=== PATIENT | female | born 1975 | race Caucasian/White ===

== ENCOUNTER → 2017-08-03 09:21 | Outpatient (CLI) | payer BC, SELFPAY ==
--- NOTE | 2017-08-03 09:21 | DT_ITS ---
This patient was seen during an EMR downtime July 27, 2017 - August 03, 2017. This patient may have a combination of paper and electronic documentation or all paper documentation. All documentation is viewable within the e-chart portion of [facility] for each patient visit.
== END ==
PROVIDERS: Family Provider Internal Medicine; PCP Internal Medicine; Visit Provider Internal Medicine
DX: C73 Malignant neoplasm of thyroid gland (principal)

== ENCOUNTER → 2018-01-18 10:44 | Outpatient (CLI) | payer BC, SELFPAY ==
--- NOTE | 2018-01-18 10:46 | BI_ITS ---
MAMMOGRAPHY - BILATERAL SCREENING REASON FOR EXAM: Female, 42 years old. Routine annual screening examination. PERTINENT HISTORY: Aunt with breast cancer. Remote right excisional breast biopsy. TECHNIQUE: Digital bilateral breast nati (3D mammographic acquisition) in the CC and MLO projections. 2-D mediolateral oblique (MLO) and craniocaudad (CC) views of both breasts were obtained. CAD: Full Field Digital Mammography with Computer Added Detection was performed. COMPARISON: Comparison is made with prior study dated January 16, 2017 and December 19, 2015. FINDINGS: Breast Composition: The breasts are almost entirely fatty. There are no dominant masses or suspicious calcifications. No other significant abnormalities are identified. There has been no significant change since the prior study. BI/SCREENING MAMM (CAD), BILAT IMPRESSION: Stable bilateral screening mammogram. Yearly follow-up mammogram recommended. (A) ASSESSMENT CATEGORY: BIRADS Category 1: Negative. A letter regarding these results will be sent to the patient by the facility within 30 days. Approximately 10% of breast cancers are not detected by mammography. A normal mammogram should not delay biopsy of a clinically suspicious abnormality. [id number] Electronically Signed: Alec Jiménez MD at 13:47 EST Tel [phone], Service support ,
== END ==
PROVIDERS: Family Provider Internal Medicine; PCP Internal Medicine; Visit Provider Internal Medicine
DX: Z12.31 Encounter for screening mammogram for malignant neoplasm of breast (principal)
CPT/HCPCS: 77063; 77067

== ENCOUNTER 2018-02-24 16:30 | Outpatient (RCR) | payer BC, SELFPAY ==
--- NOTE | 2018-02-11 18:48 | HP.PTEVAL_ITS ---
Patient's Visit Information KAREL VAIL is a 42 year old F referred to Physical Therapy by Pam Louise DO with a diagnosis of cervical radiculopathy. Date of Evaluation: 02/11/18 Physical Therapist: Amari Baltazar, WILTONT, OCS, CSCS - Visit Plan Frequency: 2-3x /Week Duration: 4-6 Weeks Plan: 2-3x/week for 3-6 weeks. c/s ret ext adn progression of forces(monitor R rotation, ext rom, hand and neck symptoms). postural correction with strength, pec stretch and c/s manual traction as needed/ ext mobs. MH if needed and STM - Subjective Findings: B hand trouble Pain in Distal Fingers B, hard to product marketing consultant, sometimes fingers contract and feel burning in neck. Have been a problem for over a month. Has had it int he past. Intermittent pain in neck and feels numb and burny up there in the last 5-6 years. Injection years ago helped. Burning in last couple days. Holding things with hands can hurt. Sleeping too much. 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 Dishes and carrying laundry baskets and picking up kids are nto easy and hurt. Opening some packages can be hard and need to use scissors. No problem coughing or sneezing. RALPH intermittently for long time. - Pain neck pain Pain Intensity (Out of 10): 0 Pain Intensity Range: 8 Comment: burning pain hands Pain Intensity (Out of 10): 0 Pain Intensity Range: 0, 1, 7 Comment: using hands worse. - Objective c/s AROM L rotation 70 and R 55 and pain, c/s ext 30 and pain, R SB limited and pain R,. reflexes 2/3 biceps adn triceps. sensation UE WNL to gross light touch. Strength UE 4/5 without pain. Posture is very forward head and scapula, loss of cervical lordosis evident. Tender to touch R>L UT and vivian cervical mm. - c/s compression test. Full aROM B UE. repeated motion testing c/s. Protrusion: NE. retraction: Better motion, NE on nonexistent pain. ret/ext: better motion and rot and ext. - Goals Goal 1:: full c/s arom without pain Goal Time Frame: 4-6 Weeks Goal 2:: Patient feel hand and neck symptoms 90% improved adn 1/10 at worst. Goal Time Frame: 4-6 Weeks Goal 3:: match up person children and food at home without pain. Goal Time Frame: 4-6 Weeks Goal 4:: I approp HEP to manage symptoms. Goal Time Frame: 4-6 Weeks - Rehabilitation Potential Physical Therapy Diagnosis: likely cervical discal radiculopathy. Rehabilitation Potential: Fair - Anticipated Interventions Patient/Client Instruction: Educate patient on: Condition, Plan of Care For the Purpose of:: To decrease pain, To increase ROM Therapeutic Exercise to Include: Strength training, Flexibilty training, Passive ROM, Active ROM, Elizabeth Exercises For the Purpose of:: To decrease pain, To increase ROM, To increase tolerance to activity/condition/position, To improve ability of physical actions for home/community/work/leisure Manual Therapy Techniques to Include: Mobilization, Soft tissue mobilization For the Purpose of:: To increase ROM Thermo therapy (hot pack): Yes For the Purpose of:: To increase tolerance to activity/condition/position Thank you for the opportunity to evaluate your patient. For Medicare and Medicare HMO plans, please review the plan of care and approve it. It will need to be FAXED BACK to us at [phone] for Medicare purposes. For Medicare only, by signing this I certify the plan of care. Please let me know if there are questions or concerns regarding this plan of care. Physician Signature: Date:
--- NOTE | 2018-02-24 17:11 | HP.PTREVAL_ITS ---
Pam Louise, DO, It has been my pleasure to treat KAREL VAIL over the last 5 visits for cervical radiculopathy. Please see the progress note below for an update on the physical therapy plan of care! Subjective: RALPH over last weekend, stopped ex and seems better since. Never been any change to the hands. Only hurt when she uses them. Objective/Function: No change to hand symptoms with any of the therapy and not improving, conversely head and neck bothering her more. Recommend return to doctor for next medical option. Plan Plan: Pt to return to doctor for next medical option. Would be happy to keep seeing her if no other options but she is not coming along as expected. Pt to call after doctor visit for return or D/C Goals Goal 1:: full c/s arom without pain Goal Time Frame: 4-6 Weeks Goal Progress: Not Progressing Goal 2:: Patient feel hand and neck symptoms 90% improved adn 1/10 at worst. 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 Goal Time Frame: 4-6 Weeks Goal Progress: Not Progressing Goal 4:: I approp HEP to manage symptoms. Goal Time Frame: 4-6 Weeks Goal Progress: Not Progressing Anticipated Interventions Patient/Client Instruction: Educate patient on: Condition, Plan of Care For the Purpose of:: To decrease pain, To increase ROM Therapeutic Exercise to Include: Strength training, Flexibilty training, Passive ROM, Active ROM, Elizabeth Exercises For the Purpose of:: To decrease pain, To increase ROM, To increase tolerance to activity/condition/position, To improve ability of physical actions for home/community/work/leisure Manual Therapy Techniques to Include: Mobilization, Soft tissue mobilization For the Purpose of:: To increase ROM Thermo therapy (hot pack): Yes For the Purpose of:: To increase tolerance to activity/condition/position Please do not hesitate to contact me at [phone] by phone or if you have questions or concerns regarding this new plan of care! Sincerely, Amari Baltazar, DPT, OCS, CSCS
--- NOTE | 2018-05-25 18:29 | HP.PTDCSUM_ITS ---
HP - PT D/C Summary It has been my pleasure to treat KAREL VAIL under orders from Pam Louise DO, for the diagnosis of cervical radiculopathy for a total of 5 visit(s). Discharge Date: Please see the following information for a summary of their discharge status. - Subjective Subjective: RALPH over last weekend, stopped ex and seems better since. Never been any change to the hands. Only hurt when she uses them. - Pain neck pain Pain Intensity (Out of 10): 5 hands Pain Intensity (Out of 10): 5 - Overall Improvement % Improvement: 0 - Objective Objective/Function: No change to hand symptoms with any of the therapy and not improving, conversely head and neck bothering her more. Recommend return to doctor for next medical option. - Goals Goal 1:: full c/s arom without pain Goal Progress: Not Progressing Goal 2:: Patient feel hand and neck symptoms 90% improved adn 1/10 at worst. 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 Goal Progress: Not Progressing Goal 4:: I approp HEP to manage symptoms. Goal Progress: Not Progressing - Plan Plan: Pt to return to doctor for next medical option. Would be happy to keep seeing her if no other options but she is not coming along as expected. Pt to call after doctor visit for return or D/C - D/C Information If there are questions or concerns regarding this patient's physical therapy, please feel free to call me at [phone]. Thank you for the referral of this patient. Sincerely, Amari Baltazar, DPT, OCS, CSCS
== END 2018-02-24 19:00 | disposition home or self-care (01) ==
LOC: PT 16:30
PROVIDERS: Family Provider Internal Medicine; PCP Internal Medicine; Referring Provider Internal Medicine; Visit Provider Internal Medicine
DX: M54.12 Radiculopathy, cervical region (principal)
CPT/HCPCS: 97014; 97110; 97140; 97162; G0283

== ENCOUNTER → 2018-03-08 10:05 | Outpatient (CLI) | payer BC, SELFPAY ==
--- NOTE | 2018-03-08 10:49 | MRI_ITS ---
STUDY: MRI CERVICAL SPINE WITH AND WITHOUT CONTRAST REASON FOR EXAM: Female, 42 years old. Transverse myelitis with neck pain TECHNIQUE: Standardized fat and water weighted pulse sequences were obtained in the sagittal and axial following I.V. administration of 10 ml of Gadavist contrast material. COMPARISON: 06/23/2014 FINDINGS: Normal foramen magnum and brainstem-cervical cord junction. Normal craniovertebral junction. Normal anterior atlantoaxial articulation. Normal odontoid process. Normal cervical lordosis. Normal vertebral bodies and posterior osseous elements. C2-3: Normal endplates. Normal disc height, signal and morphology. Normal central canal and intervertebral neural foramina. C3-4: Normal endplates. Normal disc height, signal and morphology. Normal central canal and intervertebral neural foramina. C4-5: Disc osteophyte complex with moderate central canal and bilateral foraminal stenoses. C5-6: Disc osteophyte complex with mild central canal and moderate left foraminal stenoses. C6-7: Normal endplates. Normal disc height, signal and morphology. Normal central canal and intervertebral neural foramina. C7-T1: Normal endplates. Normal disc height, signal and morphology. Normal central canal and intervertebral neural foramina. Normal cervical cord. Previously described area of T2 hyperintensity involving the cord at the T4 level is unchanged. This is incompletely imaged on this cervical spine study. Normal visualized soft tissue structures. MRI/Spine Cervical W/WO Contrast IMPRESSION: No cervical cord signal abnormalities are seen. Previously described area of T2 hyperintensity involving the cord at the T4 level is unchanged. This is incompletely imaged on this cervical spine study. Multilevel degenerative disease as described. No evidence of nerve root impingement. Electronically Signed: Kenny Friend MD at 13:10 EST Tel , Service support ,
== END ==
PROVIDERS: Family Provider Internal Medicine; PCP Internal Medicine; Referring Provider Internal Medicine; Visit Provider Internal Medicine
DX: M54.12 Radiculopathy, cervical region (principal)
CPT/HCPCS: 72156; A9585

== ENCOUNTER → 2018-07-02 12:48 | Outpatient (CLI) | payer BC, SELFPAY ==
--- NOTE | 2018-07-02 12:51 | RAD_ITS ---
STUDY: X-RAY - LUMBAR SPINE REASON FOR EXAM: Female, 43 years old. Back pain. TECHNIQUE: 5 view(s) of the lumbar spine were obtained. COMPARISON: None FINDINGS: Normal lumbar lordosis. There is no substantial scoliosis. There is a normal alignment of the vertebrae. Normal vertebral bodies and endplates. Normal disc space heights. The patient is status post fusion of L5 and S1 with bilateral pedicle screws. The soft tissue structures are unremarkable. RAD/L/S Spine Min 4 Views IMPRESSION: 1. Status post fusion of L5 and S1 with pedicle screws. 2. No demonstrated acute changes. Electronically Signed: Danny Chapin MD at 13:03 EDT Tel , Service support ,
== END ==
PROVIDERS: Family Provider Internal Medicine; PCP Internal Medicine; Referring Provider Nurse Practitioner Family; Visit Provider Nurse Practitioner Family
DX: M54.5 Low back pain (principal)
CPT/HCPCS: 72110

== ENCOUNTER → 2018-08-02 14:49 | Outpatient (CLI) | payer BC, SELFPAY ==
--- NOTE | 2018-08-02 14:52 | ECHOCS_ITS ---
Reason For Study: EXERCISE INTOLERANCE Procedure This was a 2D Doppler, Color Flow transthoracic echocardiogram. Exam performed in department. Left Ventricle Normal LV size. The estimated ejection fraction is 50 %. Stage 1 diastolic dysfunction. No regional wall motion abnormalities noted. Right Ventricle Normal RV size. Normal systolic function. Atria Normal left atrium. Normal right atrium. Mitral Valve Normal mitral valve. Tricuspid Valve Normal tricuspid valve. Aortic Valve Normal aortic valve. Pulmonic Valve Normal pulmonic valve. Great Vessels Normal aortic root. The pulmonary artery is normal size. Normal inferior vena cava. Pericardium/Pleural No pericardial effusion. Medication 22 gauge I.V. with prn adaptor inserted into right arm. Diluted definity 2ml given slow IV push to enhance endocardial definition. MMode/2D Measurements & Calculations LVIDd: 3.6 cm IVSd: 0.94 cm Ao root diam: 3.0 cm LVIDs: 2.4 cm LVPWd: 0.94 cm RVDd: 3.3 cm FS: 31.6 % LAV(MOD-bp): 31.9 ml LVAd ap4: 26.2 cm2 SV(MOD-sp4): 44.4 ml LAV(MOD-bp) Indexed: 15.0 ml/m2 EDV(MOD-sp4): 73.2 ml LAV(MOD-sp2): 37.1 ml EDV(sp4-el): 75.1 ml LAV(MOD-sp4): 27.5 ml LVAs ap4: 14.3 cm2 ESV(MOD-sp4): 28.8 ml ESV(sp4-el): 27.4 ml EF(MOD-sp4): 60.6 % EF(sp4-el): 63.4 % SV(sp4-el): 47.6 ml LA A4 area: 13.1 cm2 LA dimension(2D): 3.6 cm RA A4 area: 11.8 cm2 Time Measurements MV dec time: 0.20 sec Doppler Measurements & Calculations MV E max ralph: 44.6 cm/sec Lat Peak E' Ralph: 12.4 cm/sec Med Peak E' Ralph: 8.6 cm/sec MV A max ralph: 76.5 cm/sec E/E' lat: 3.6 E/E' med: 5.2 MV E/A: 0.58 Ao V2 max: 135.2 cm/sec LV V1 max: 90.2 cm/sec PA V2 max: 68.2 cm/sec Ao max P.3 mmHg LV V1 max P.3 mmHg Interpretation Summary Normal LV size. The estimated ejection fraction is 50 %. Stage 1 diastolic dysfunction. Contrast injection was performed. Ordering Physician: Pam Louise Referring Physician: Pam Louise Performed By: Ana Laura Reyes RDCS
== END ==
PROVIDERS: Family Provider Internal Medicine; PCP Internal Medicine; Referring Provider Internal Medicine; Visit Provider Internal Medicine
DX: E04.1 Nontoxic single thyroid nodule (principal); K76.0 Fatty (change of) liver, not elsewhere classified; R68.89 Other general symptoms and signs
CPT/HCPCS: 93306; Q9957; A4216; C8929

== ENCOUNTER → 2018-08-28 10:32 | Outpatient (CLI) | payer BC, SELFPAY ==
[2018-08-28 11:23] LABS: hCG Titer Quant., Serum 20432 mIU/mL (1-3)
== END ==
PROVIDERS: Family Provider Internal Medicine; PCP Internal Medicine; Referring Provider Internal Medicine; Visit Provider Internal Medicine
DX: Z32.01 Encounter for pregnancy test, result positive (principal)
CPT/HCPCS: 36415; 84702

== ENCOUNTER → 2018-08-30 11:38 | Outpatient (CLI) | payer BC, SELFPAY ==
[2018-08-30 13:15] LABS: hCG Titer Quant., Serum 25313 mIU/mL (1-3)
== END ==
PROVIDERS: Family Provider Internal Medicine; PCP Internal Medicine; Referring Provider Internal Medicine; Visit Provider Internal Medicine
DX: Z32.01 Encounter for pregnancy test, result positive (principal)
CPT/HCPCS: 36415; 84702

== ENCOUNTER → 2018-08-31 07:58 | Outpatient (CLI) | payer BC, SELFPAY ==
--- NOTE | 2018-08-31 07:59 | US_ITS ---
STUDY: ABDOMINAL ULTRASOUND - RIGHT UPPER QUADRANT REASON FOR VISIT: Female, 43 years old. Fatty liver. TECHNIQUE: Ultrasound evaluation of the right upper quadrant was performed with real-time and static kent-scale imaging. TECHNICAL QUALITY: Adequate. COMPARISON: None. FINDINGS: Liver: The liver measures 15.3 cm. There is increased echogenicity consistent with fatty infiltration. The bile ducts are within normal limits. There is hepatic color flow. The direction of portal flow is hepatopetal. There is no demonstrated mass lesion. Gallbladder: The patient is status post cholecystectomy. Common Bile Duct (C.B.D.): The common bile duct measures 2.5 mm. Pancreas: Normal size of the head, body and tail of the pancreas. There is normal echogenicity of the pancreas. There is no demonstrated pancreatic mass or cyst. Right Kidney: Normal size of the right kidney. The right kidney measures 11.9 cm in length. Normal renal cortex. There is no demonstrated renal mass or cyst. There is no right hydronephrosis. There is a punctate calcification within the right renal cortex. US/Liver IMPRESSION: Fatty infiltration of the liver. Electronically Signed: Stephanie Murry MD at 16:56 EDT Tel , Service support ,
--- NOTE | 2018-08-31 07:59 | US_ITS ---
STUDY: THYROID ULTRASOUND REASON FOR EXAM: Female, 43 years old. Thyroid nodule TECHNIQUE: Ultrasound evaluation of the thyroid was performed with real-time and static kent-scale imaging. COMPARISON: 08/03/2017 FINDINGS: RIGHT LOBE: Surgically absent LEFT LOBE: The left lobe of the thyroid gland measures 5 x 2.1 x 2.1 cm. There is a homogeneous echotexture. There is 3 solid nodules within the left thyroid lobe, largest is in the midpole region measuring 1.8 x 1.4 x 1.1 cm. ISTHMUS: The isthmus measures 3 mm. Stable small isthmus thyroid nodule measuring 4 x 3 x 2 mm The regional lymph nodes are normal. US/Thyroid IMPRESSION: Status post right thyroidectomy. Stable solid nodules in the left thyroid lobe with a dominant nodule as above. Electronically Signed: Rickey Khan DO at 8:25 EDT Tel , Service support ,
== END ==
PROVIDERS: Family Provider Internal Medicine; PCP Internal Medicine; Referring Provider Internal Medicine; Visit Provider Internal Medicine
DX: E04.1 Nontoxic single thyroid nodule (principal); K76.0 Fatty (change of) liver, not elsewhere classified; R68.89 Other general symptoms and signs
CPT/HCPCS: 76536; 76705

== ENCOUNTER → 2018-09-01 13:55 | Outpatient (CLI) | payer BC, SELFPAY ==
[2018-09-01 15:50] LABS: hCG Titer Quant., Serum 30846 mIU/mL (1-3)
== END ==
PROVIDERS: Family Provider Internal Medicine; PCP Internal Medicine; Referring Provider Internal Medicine; Visit Provider Internal Medicine
DX: Z32.01 Encounter for pregnancy test, result positive (principal)
CPT/HCPCS: 36415; 84702

== ENCOUNTER → 2018-09-08 17:27 | Outpatient (CLI) | payer BC, SELFPAY ==
[2018-09-08 16:46] VITALS: BMI 37.4
[2018-09-08 18:01] LABS: Absolute Lymphocyte Count 4.04 X10^3/uL (0.83-4.51); Absolute Neutrophil Count 7.1 X10^3/uL (2.0-7.7); Basophil# 0.05 X10^3/uL; Basophil% 0.4 % (0-1); Eosinophil# 0.12 X10^3/uL; Hematocrit 37.5 % (37-47); Hemoglobin 12.6 g/dL (12.0-15.0); Lymphocyte # 4.04 X10^3/ul (4.0); Lymphocyte % 33.4 % (19-41); Mean Corp Hgb Conc 33.6 g/dL (32-36); Mean Corpuscular Volume 95.2 fL (81-99); Mean Platelet Vol. 10.5 fl (6.2-12.0); Monocyte# 0.75 X10^3/uL; Monocyte% 6.2 % (0-10); NRBC Flagged by Analyzer 0 % (0-5); Neutrophil # 7.11 X10^3/uL (2.7-7.7); Neutrophil % 58.8 % (47-70); Platelet Count 309 K/mm3 (150-450); RBC Distribution Width CV 13.6 % (11.6-14.6); RBC Distribution Width SD 47.9 fl (35.1-43.9); Red Blood Count 3.94 M/mm3 (4.2-5.4); White Blood Count 12.1 K/mm3 (4.4-11.0)
[2018-09-08 18:15] LABS: Hemoglobin A1c 6.6 % (4.2-6.3)
[2018-09-08 18:25] LABS: Protein, Urine (Random) 15.6 mg/dL (<11.9); Protein:Creat Ratio 69 mg/g CRE (0-200)
[2018-09-08 18:35] LABS: ALB/GLOB Ratio 0.8 RATIO (0.9-2.4); AST(SGOT) 39 U/L (15-37); Alanine Aminotransfer ALT/SGPT 52 U/L (13-56); Albumin, Serum 3.2 g/dL (3.2-5.0); Alkaline Phosphatase 70 U/L (45-117); Anion Gap 8 (5-15); BUN 9 mg/dL (7-18); BUN/Creat Ratio 13.7 RATIO (10-20); Calcium,Total 9.1 mg/dL (8.5-10.1); Chloride 105 mmol/L (98-107); Creatinine, Serum 0.66 mg/dL (0.55-1.02); EST Glomerular Filtration Rate 104 mL/min (>60); Est Glom Filt Rate - Afr Amer 125 mL/min (>60); Globulin 4.1 g/dL (2.2-4.2); Glucose 97 mg/dL (74-106); Potassium 3.8 mmol/L (3.5-5.1); Protein, Total 7.3 g/dL (6.4-8.2); Sodium Level 135 mmol/L (136-145); T4 Free Direct 1.29 ng/dL (0.76-1.46); Thyroid Stim Hormone (TSH) 0.47 uIU/mL (0.358-3.74)
[2018-09-08 20:29] LABS: Chlamydia Trachomatis by PCR Negative (Negative); Neisserai gonorrhoeae by PCR Negative (Negative); Probe Check PASS; Sample Adequacy Control PASS; Specimen Processing Control PASS
== END ==
PROVIDERS: Family Provider Internal Medicine; PCP Internal Medicine; Referring Provider Obstetrics & Gynecology; Visit Provider Obstetrics & Gynecology
DX: O09.529 Supervision of elderly multigravida, unspecified trimester (principal); Z3A.00 Weeks of gestation of pregnancy not specified
CPT/HCPCS: 36415; 80053; 82570; 83036; 84156; 84439; 84443; 85025; 86850; 86900; 87086; 87088; 87491; 87591

== ENCOUNTER → 2018-09-21 16:07 | Outpatient (CLI) | payer BC, SELFPAY ==
[2018-09-08 16:46] VITALS: BMI 37.4
[2018-09-22 09:41] LABS: HIV - WCH Non-Reactive (Nonreactive); Hepatitis B Surface Antigen Non-Reactive (Nonreactive); Rubella IgG 46.5 IU/mL
[2018-09-23 13:36] LABS: Rapid Plasmin Reagin (RPR) NONREACTIVE (NONREACTIVE)
[2018-09-23 16:07] LABS: Hemoglobin Fraction A 97.8 % (96.4-98.8); Hemoglobin Fraction A2 2.2 % (1.8-3.2); Hemoglobin Fraction C 0 % (0.0); Hemoglobin Fraction F 0 % (0.0-2.0); Hemoglobin Fraction S 0 % (0.0); Hemoglobin Solubility,Panel Negative (Negative)
== END ==
PROVIDERS: Family Provider Internal Medicine; PCP Internal Medicine
DX: O24.119 Pre-existing type 2 diabetes mellitus, in pregnancy, unspecified trimester (principal); Z3A.00 Weeks of gestation of pregnancy not specified
CPT/HCPCS: 36415; 83021; 85660; 86592; 86703; 86762; 87340

== ENCOUNTER → 2018-10-11 15:13 | Outpatient (CLI) | payer BC, SELFPAY ==
[2018-09-08 16:46] VITALS: BMI 37.4
[2018-10-11 15:49] LABS: Hematocrit 36.2 % (37-47); Hemoglobin 11.8 g/dL (12.0-15.0); Mean Corp Hgb Conc 32.6 g/dL (32-36); Mean Corpuscular Hgb 31.5 pg (27.0-32.0); Mean Corpuscular Volume 96.5 fL (81-99); Mean Platelet Vol. 10.4 fl (6.2-12.0); Platelet Count 260 K/mm3 (150-450); RBC Distribution Width CV 12.8 % (11.6-14.6); RBC Distribution Width SD 45.8 fl (35.1-43.9); Red Blood Count 3.75 M/mm3 (4.2-5.4); White Blood Count 10.6 K/mm3 (4.4-11.0)
[2018-10-11 16:26] LABS: ALB/GLOB Ratio 0.7 RATIO (0.9-2.4); AST(SGOT) 16 U/L (15-37); Alanine Aminotransfer ALT/SGPT 18 U/L (13-56); Albumin, Serum 2.7 g/dL (3.2-5.0); Alkaline Phosphatase 63 U/L (45-117); Anion Gap 8 (5-15); BUN 12 mg/dL (7-18); BUN/Creat Ratio 20.1 RATIO (10-20); Calcium,Total 9.1 mg/dL (8.5-10.1); Chloride 107 mmol/L (98-107); EST Glomerular Filtration Rate 116 mL/min (>60); Est Glom Filt Rate - Afr Amer 140 mL/min (>60); Globulin 4.1 g/dL (2.2-4.2); Glucose 123 mg/dL (74-106); Potassium 3.7 mmol/L (3.5-5.1); Protein, Total 6.8 g/dL (6.4-8.2); Sodium Level 139 mmol/L (136-145); Uric Acid 2.8 mg/dL (2.6-6.0)
[2018-10-11 16:27] LABS: Lactic Acid 1.5 mmol/L (0.4-2.0)
[2018-10-11 17:45] LABS: Protein, Urine (Random) 15.9 mg/dL (<11.9); Protein:Creat Ratio 61 mg/g CRE (0-200)
== END ==
PROVIDERS: Family Provider Internal Medicine; PCP Internal Medicine
DX: O09.899 Supervision of other high risk pregnancies, unspecified trimester (principal); O09.521 Supervision of elderly multigravida, first trimester; Z3A.00 Weeks of gestation of pregnancy not specified
CPT/HCPCS: 36415; 80053; 82570; 83605; 84156; 84550; 85027

== ENCOUNTER → 2018-11-01 15:33 | Outpatient (CLI) | payer BC, SELFPAY ==
[2018-09-08 16:46] VITALS: BMI 37.4
[2018-11-01 17:16] LABS: Hemoglobin A1c 5.6 % (4.2-6.3)
[2018-11-01 17:18] LABS: T4 Free Direct 1.25 ng/dL (0.76-1.46)
== END ==
PROVIDERS: Family Provider Internal Medicine; PCP Internal Medicine; Referring Provider Medical Genetics Clinical Genetics (M.D.); Visit Provider Medical Genetics Clinical Genetics (M.D.)
DX: O24.911 Unspecified diabetes mellitus in pregnancy, first trimester (principal); O99.280 Endocrine, nutritional and metabolic diseases complicating pregnancy, unspecified trimester; E03.9 Hypothyroidism, unspecified; Z3A.00 Weeks of gestation of pregnancy not specified
CPT/HCPCS: 36415; 83036; 84439; 84443

== ENCOUNTER 2018-11-10 13:00 | Outpatient (RCR) | payer BC, SELFPAY ==
--- NOTE | 2018-08-23 10:27 | HP.PTEVAL ---
Patient's Visit Information KAREL VAIL is a 43 year old F referred to Physical Therapy by ROBY Dominguez with a diagnosis of LUMBAR SPONDYLOSIS, DDD AND POST-LAMINECTOMY SYNDROME.. Date of Evaluation: 08/23/18 Physical Therapist: Dorothy Garcia, PT, Cert MDT - Visit Plan Frequency: 2-3x /Week Duration: 4-6 Weeks Plan: * DIASTIS RECTI* *H/O THORACIC TRANSVERSE MYELITIS*. DIASTIS RECTI SPECIFIC EXERCISES. AQUATIC THERAPY FOR POSTURE CORRECTION/STRENGTHENING, INSTRUCTION IN APPROPRIATE BODY MECHANICS AND ACTIVITY MODIFICATIONS. DLS STARTING WITH A NEUTRAL SPINE PROGRESSING ROM TOLERATED. DARREN LE ROM, STRETCHING AND STRENGTHENING. HEP INSTRUCTION. 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 Disability: NO. Present symptoms: LOW BACK PAIN. DARREN LE MUSCLE SPASMS, HIP PAIN, THIGH, LEG AND FOOT PAIN, NUMBNESS AND TINGLING. Present since: 2001. Pain Scale: WORST 5/10, LEAST 1/10. Currently: 1-10. Commenced as a result of: NO APPARENT REASON. Symptoms at onset: LOW BACK AND LEGS. Worse: LIFTING, WALKING, SITTING, STANDING, PROLONGED ACTIVITY, HOMEMAKING, AND STAYING IN ONE POSITION TO LONG. Better: FREQUENT CHANGE OF POSITION, ICE PACK. Disturbed sleep: YES. Previous history/Previous treatment: 2003 - LUMBAR FUSION. TOMEKA'S - DR. MONTERO - FIRST SHOT AND WAS RECEIVED AUGUST 06 2018 - HELPED A LOT. CHIROPRACTIC TREATMENTS ON AND OFF NEEDED FOR ABOUT 20 YEARS (INCLUDING BEFORE SURGERY). 1-2 EPISODES OF CARE WITH PT (ONE BEFORE AND ONE AFTER). Coughing/sneezing/straining: NEGATIVE. Gait: DISTANCE AND TIME LIMITED. DARREN HIP PAIN AND DYSFUNCTION. SOME BALANCE ISSUES FROM DAMAGE FROM TRANSVERSE MYELITIS IN THORACIC SPINE. LEGS GET NUMB WITH PROLONGED WALKING. Difficulty initiating urinatin: NO. Accidents: NO. Unexplained weight loss: NO. Imaging: RECENT LUMBAR X-RAY - IMPRESSION: 1. Status post fusion of L5 and S1 with pedicle screws. 2. No demonstrated acute changes. PMH: TRANSVERSE MYELITIS (DIAGNOSED 2013) - RESIDUAL BALANCE ISSUES FROM DAMAGE. NIDDM, FIBROMYALGIA, ARTHRITIS, NECK PROBLEMS - NO NECK SURGERY. GETTING NECK INJECTIONS NOW. RECENET EPISODE OF CARE WITH PT FOR NECK WAS TOO PAINFUL PER PATIENT REPORT. RIGHT CTR, PARTIAL THYROID REMOVAL - TRACE CARCINOMA, DARREN FOOT SURGERIES, GALLBLADDER REMOVAL. *DIASTASIS RECTI. OTHER: PATIENT REPORTS SHE FEELS LIKE HER PAIN IS UNDER CONTROL SINCE RECEIVING THE INJECTION AND NOW SHE WANTS TO TRY TO GET HER STAMINA BACK. - Objective Sitting/Standing Posture: POOR. Lordosis: NORMAL. Lateral shift: NO. Relevant shift: N/A. Active Correction of posture: NE. Other Observations: INDEP GAIT AND TRANSFERS WITHOUT AD. Motor deficit: DARREN LE'S 5/5 WITH MMT'ING EXCEPT RIGHT HIP 4/5 AND LEFT 4-/5. Sensory deficit: DARREN LE LIGHT TOUCH SENSATION INTACT AND SYMMETRICAL. ROM deficit: DARREN LE'S WFL. Reflexes: NT. Dural Signs: NEGATIVE DARREN LE'S. Lumbar mvmt loss: flex - MIN - PULLING AND SORENESS IN LOW BACK. ext - MOD - LOW BACK SORENESS. R SG - MOD - NE. L SG - MOD - NE. Core strength: POOR. Palpation: NO ACUTE THORACIC, LUMBAR OR BUTTOCK PAIN WITH LIGHT PALPATION. - Goals Goal 1:: DECREASE C/O BACK AND DARREN LE SX'S TO EASE ADL'S. Goal Time Frame: 4-6 Weeks Goal 2:: IMPROVE LIFTING, WALKING, SITTING, STANDING, SLEEP, SOCIAL LIFE, TRAVEL AND HOMEMAKING FUNCTION/STAMINA Goal Time Frame: 4-6 Weeks Goal 3:: INSTRUCT IN PROPHYLAXIS Goal Time Frame: 4-6 Weeks - Rehabilitation Potential Rehabilitation Potential: Good - Anticipated Interventions Patient/Client Instruction: Educate patient on: Condition, Plan of Care, Risk Factors, Benefits of Fitness Program For the Purpose of:: To improve self management Therapeutic Exercise to Include: Strength training, Body mechanics, Postural training, Flexibilty training, Gait and locomotor training, In an aquatic setting, Dynamic Lumbar Stabilization For the Purpose of:: To increase ROM, To improve muscle performance and motor function, To increase tolerance to activity/condition/position, To improve ability of physical actions for home/community/work/leisure, To improve gait and locomotor functions Thank you for the opportunity to evaluate your patient. For Medicare and Medicare HMO plans, please review the plan of care and approve it. It will need to be FAXED BACK to us at [phone] for Medicare purposes. For Medicare only, by signing this I certify the plan of care. Please let me know if there are questions or concerns regarding this plan of care. Physician Signature: Date:
--- NOTE | 2018-10-06 09:42 | HP.PTREVAL ---
Nicolette Romero, LEXII-C, It has been my pleasure to treat KAREL VAIL over the last 13 visits for LUMBAR SPONDYLOSIS, DDD AND POST-LAMINECTOMY SYNDROME.. Please see the progress note below for an update on the physical therapy plan of care! Subjective: PATIENT REPORTS POOL THERAPY HAS BEEN GOING ASWOME AND FEELS LIKE IT HAS BEEN A GOOD CHOICE FOR HER. INTERMITTENT ACHING IN LOW BACK NOW. IT HAS BEEN REALLY GOOD. STILL HAVING SOME INTERMITTEN PAINS IN HER FEET BUT NOT SURE IF IT IS RELATED TO BACK. Objective/Function: PATIENT IS MAKING GREAT PROGRESS TOWARD ALL PT GOALS. SHE STILL HAS DECRASED LIGHT TOUCH SENSATION OF THE LLE COMPARED TO THE RIGHT AND LLE WEAKNESS COMPARED TO THE RIGHT BUT NO PAIN WITH LUMBAR ROM TESTING TODAY - SEE BELOW. SHE IS BECOMING INDEP WITH A POOL PROGRAM AND READY TO DECREASE FORMAL PT SHE TRANSITIONS TO FULL INDEP POOL PROGRAM. SHE HAS MILD FORWARD HEAD AND ROUNDED SHOULDERS AND WOULD BENEFIT FROM MORE EMPHASIS ON POSTURE WITH HER PROGRAM. Lumbar mvmt loss: flex - NIL. ext - MOD. R SG - MOD - NE. L SG - MOD - NE. Core strength: POOR. Palpation: NO ACUTE THORACIC, LUMBAR OR BUTTOCK PAIN WITH LIGHT PALPATION. PATIENT REPORTS SORENESS WHERE HER SURGERY WAS LIKE USUAL. Plan Plan: CONTINUE AQUATIC THERAPY DECREASING TO 1X/WK X 4 WEEKS TO HELP PATIENT SUCCESSFULLY TRANSITION TO INDEP POOL PROGRAM AT FACILITY OF HER CHOICE AND FOR FURTHER PROGRESSION ABLE. INCORPORATE UPPER BODY POSTURE CORRECTION AND SCAPULAR STRENGTHEING FOR POSTURE TOLERATED. PATIENT IS AGREEABLE TO THIS POC Goals Goal 1:: DECREASE C/O BACK AND DARREN LE SX'S TO EASE ADL'S. Goal Time Frame: 4-6 Weeks Goal Progress: Progressing Goal 2:: IMPROVE LIFTING, WALKING, SITTING, STANDING, SLEEP, SOCIAL LIFE, TRAVEL AND HOMEMAKING FUNCTION/STAMINA Goal Time Frame: 4-6 Weeks Goal Progress: Progressing Goal 3:: INSTRUCT IN PROPHYLAXIS Goal Time Frame: 4-6 Weeks Goal Progress: Progressing Anticipated Interventions Patient/Client Instruction: Educate patient on: Condition, Plan of Care, Risk Factors, Benefits of Fitness Program For the Purpose of:: To improve self management Therapeutic Exercise to Include: Strength training, Body mechanics, Postural training, Flexibilty training, Gait and locomotor training, In an aquatic setting, Dynamic Lumbar Stabilization For the Purpose of:: To increase ROM, To improve muscle performance and motor function, To increase tolerance to activity/condition/position, To improve ability of physical actions for home/community/work/leisure, To improve gait and locomotor functions Please do not hesitate to contact me at [phone] by phone or if you have questions or concerns regarding this new plan of care! Sincerely, Dorothy Garcia, PT, Cert MDT
--- NOTE | 2018-11-10 13:26 | HP.PTDCSUM ---
HP - PT D/C Summary It has been my pleasure to treat KAREL VAIL under orders from Nicolette Romero, LEXII-C, for the diagnosis of LUMBAR SPONDYLOSIS, DDD AND POST-LAMINECTOMY SYNDROME. for a total of 16 visit(s). Discharge Date: Please see the following information for a summary of their discharge status. - Subjective Subjective: PATIENT REPORTS SHE IS DOING INDEP POOL EX AT THE COMFORT INN NOW AND IT IS GOING GOOD. PATIENT REPORTS SHE FEELS COMFORTABLE CONTINUEING ON HER OWN NOW. NO LONGER HAVING FOOT SYMPTOMS. INTERMITTENT LEFT BUTTOCK AND THIGH CRAMPING. STILL HAVING UE SX'S. - Pain B LE Pain Intensity (Out of 10): 0 Lumbar Spine Pain Intensity (Out of 10): 1 - Overall Improvement % Improvement: 85 - Objective Objective/Function: ALL GOALS MET AND PATIENT IS INDEP WITH A WATER EX PROGRAM NOW. Lumbar mvmt loss: flex - NIL. ext - MOD. R SG - MOD - NE. L SG - MOD - NE - Goals Goal 1:: DECREASE C/O BACK AND DARREN LE SX'S TO EASE ADL'S. Goal Progress: Goal Met Goal 2:: IMPROVE LIFTING, WALKING, SITTING, STANDING, SLEEP, SOCIAL LIFE, TRAVEL AND HOMEMAKING FUNCTION/STAMINA Goal Progress: Goal Met Goal 3:: INSTRUCT IN PROPHYLAXIS Goal Progress: Goal Met - Plan Plan: D/C. PATIENT AGREEABLE. - D/C Information If there are questions or concerns regarding this patient's physical therapy, please feel free to call me at [phone]. Thank you for the referral of this patient. Sincerely, Dorothy Garcia, PT, Cert MDT
== END 2018-11-10 19:00 | disposition home or self-care (01) ==
LOC: PT 13:00
PROVIDERS: Family Provider Internal Medicine; PCP Internal Medicine; Referring Provider Nurse Practitioner Family; Visit Provider Nurse Practitioner Family
DX: M96.1 Postlaminectomy syndrome, not elsewhere classified (principal); M47.817 Spondylosis without myelopathy or radiculopathy, lumbosacral region; M51.37 Other intervertebral disc degeneration, lumbosacral region
CPT/HCPCS: 97113; 97162; 97530

== ENCOUNTER → 2019-01-24 09:50 | Outpatient (CLI) | payer BC, SELFPAY ==
[2018-11-17 13:12] VITALS: BMI 38.7
--- NOTE | 2019-01-24 09:51 | ECHOD_ITS ---
Reason For Study: HTN Procedure This was a 2D Doppler, Color Flow transthoracic echocardiogram. The study was technically difficult. Exam performed in department. Left Ventricle Normal LV size. Left ventricular systolic function is normal. The estimated ejection fraction is 60 %. Stage 1 diastolic dysfunction. No regional wall motion abnormalities noted. Right Ventricle Normal RV size. Normal systolic function. Atria Normal left atrium. Normal right atrium. Mitral Valve Normal mitral valve. Tricuspid Valve Normal tricuspid valve. Mild tricuspid valve insufficiency. Pulmonary artery systolic pressure is 30 mmHg. Aortic Valve Trisinus/trileaflet aortic valve. Pulmonic Valve Normal pulmonic valve. Great Vessels Normal aortic root. The pulmonary artery is normal size. Normal inferior vena cava. Pericardium/Pleural No pericardial effusion. Medication Unable to use Definity contrast due to (due Mar 2019). MMode/2D Measurements & Calculations LVIDd: 4.7 cm IVSd: 1.1 cm Ao root diam: 3.0 cm LVIDs: 3.2 cm LVPWd: 1.0 cm RVDd: 3.0 cm FS: 32.1 % LAV(MOD-bp): 43.4 ml LA A4 area: 19.5 cm2 LA dimension(2D): 4.1 cm LAV(MOD-bp) Indexed: 19.4 ml/m2 LAV(MOD-sp2): 33.9 ml LAV(MOD-sp4): 52.1 ml RA A4 area: 12.2 cm2 Doppler Measurements & Calculations MV E max ralph: 61.6 cm/sec Lat Peak E' Ralph: 12.3 cm/sec Med Peak E' Ralph: 7.4 cm/sec MV A max ralph: 81.6 cm/sec E/E' lat: 5.0 E/E' med: 8.3 MV E/A: 0.75 Ao V2 max: 157.7 cm/sec LV V1 max: 109.9 cm/sec TR max ralph: 256.3 cm/sec Ao max P.0 mmHg LV V1 max P.8 mmHg TR max P.7 mmHg Interpretation Summary Normal LV size. Left ventricular systolic function is normal. The estimated ejection fraction is 60 %. Stage 1 diastolic dysfunction. Mild tricuspid valve insufficiency. Pulmonary artery systolic pressure is 30 mmHg. Ordering Physician: Jose Anderson Referring Physician: LEONID FOX Performed By: Mary Valerio, RDCS, RVT
== END ==
PROVIDERS: Family Provider Internal Medicine; PCP Internal Medicine; Referring Provider Internal Medicine Cardiovascular Disease; Visit Provider Internal Medicine Cardiovascular Disease
DX: I10 Essential (primary) hypertension (principal)
CPT/HCPCS: 93306

== ENCOUNTER → 2019-07-12 12:09 | Outpatient (CLI) | payer SELFPAY ==
[2019-06-06 09:11] VITALS: BMI 36.3
--- NOTE | 2019-07-12 12:14 | CT_ITS ---
STUDY: CARDIAC CALCIUM SCORING - CT CHEST REASON FOR EXAM: Female, 44 years old. SCREENING, HTN DB, THYROID CA RADIATION DOSAGE (If Supplied By Facility): CTDIvol = ( 12.19 ) mGy, DLP = ( 195.04 ) mGycm TECHNIQUE: Axial non-enhanced images were acquired through the heart for the sole purpose of measuring coronary artery calcium. Individualized dose optimization techniques were used for this CT. COMPARISON: None. FINDINGS: Visualized surrounding anatomy: Normal. Left Main Coronary Artery: 0 Left Anterior Descending Artery: 0 Left Circumflex Artery: 0 Right Coronary Artery: 0 Other: 0 Total Calcium Score: 0 CT/Limited Chest CT w/CCTA IMPRESSION: A Calcium Score of 0 places the patient in the approximate 0 percentile, based on the MORALES data calculator. Please go to: [email or web address]-[email or web address]/[email or web address]/input.[email or web address] , for a description of the calculator. Electronically Signed: Jorge Garcia, at 11:14 EDT Tel , Service support ,
[2019-07-12 12:41] VITALS: BP 125/69; PULSE 90; RESP 16; O2SAT 97; BMI 38.7
[2019-07-12 13:03] VITALS: BP 114/84; PULSE 81
[2019-07-12] MEDS: Metoprolol Tartrate 5 MG/5 ML Vial IV ×3 (13:03→13:18)
[2019-07-12 13:09] VITALS: BP 122/85; PULSE 80
[2019-07-12 13:18] VITALS: BP 121/77; PULSE 82
[2019-07-12 13:32] VITALS: BP 132/84; PULSE 80; RESP 16; O2SAT 100
--- NOTE | 2019-07-12 13:46 | NURSING ---
PT RESTING COMFORTABLY WITH LIGHTS DOWN.CALL LIGHT WITHIN REACH. PT AND AWARE CT AT 1445.
--- NOTE | 2019-07-12 16:52 | CA.SCORE ---
Calcium Scoring Date of Study:: 07/12/19 Coronary Calcium Scoring: High-resolution Computed Tomographic imaging of the chest was performed on 07/12/2019 with particular attention paid to the coronary arteries. Images from the examination were analyzed for the presence and extent of coronary artery calcification , using coronary calcium quantification software. The patient tolerated the procedure well and there were no complications. The results of the coronary calcification analysis are provided below. - Findings Left Main (LM): 0 Left Anterior Descending (LAD): 0 Left Circumflex (LCX): 0 Right Coronary Artery (RCA): 0 Total Agatston Score: 0 Percentile Ranking: Percentile rankin%: According to pre-published reference tables 50% of people of the same gender/similar age had the same/lower scores. Calcium Scoring Interpretation: 0 No identifiable atherosclerotic plaque. Very low cardiovascular disease risk. <5% chance of presence coronary artery disease A Negative Examination 1-10 Minimal Plaque burden. Significant coronary artery disease very unlikely. 11-100 Mild plaque burden. Likely mild or minimal coronary atherosclerosis. 101-400 Moderate plaque burden Moderate non-obstructive coronary artery disease highly likely. Over 400 Extensive plaque burden. High likelihood of at least one significant coronary stenosis (>50% diameter) Calcium Score: 0 Negative Examination - Continue cardiovascular risk factor evaluation as deemed appropriate.
== END ==
PROVIDERS: PCP Internal Medicine; Referring Provider Internal Medicine; Visit Provider Internal Medicine
DX: Z00.00 Encounter for general adult medical examination without abnormal findings (principal)
CPT/HCPCS: 75571; 76380; 96374

== ENCOUNTER → 2019-08-10 11:19 | Outpatient (CLI) | payer BC, SELFPAY ==
[2019-07-12 12:41] VITALS: BMI 38.7
--- NOTE | 2019-08-10 11:21 | RAD_ITS ---
STUDY: X-RAY - LEFT HAND REASON FOR EXAM: Female, 44 years old. PAIN IN JOINTS OF PHALANXES OF BOTH HANDS. NO KNOWN INJURY. TECHNIQUE: 3 view(s) of the hand. COMPARISON: None. FINDINGS: Normal radiocarpal articulation. Normal distal radioulnar joint. Normal visualized carpal bones. Normal carpal articulations Normal carpometacarpal articulation of the thumb. Normal second through fifth carpometacarpal joints. Normal metacarpi. Normal metacarpophalangeal joint of the thumb. Normal interphalangeal joint of the thumb. Normal proximal and distal phalanges of the thumb. Normal metacarpophalangeal joints of the second through fifth fingers. Normal proximal and distal interphalangeal joints of the second through fifth fingers. Normal phalanges of the second through fifth fingers. Metallic anchor is seen overlying the base of the proximal phalanx of the thumb most likely secondary to prior surgical repair of a tendon. RAD/Hand Min 3 Views IMPRESSION: No acute abnormality is seen. Electronically Signed: Alec Jiménez, at 15:26 EDT , Service support ,
--- NOTE | 2019-08-10 11:21 | RAD_ITS ---
STUDY: X-RAY - RIGHT HAND REASON FOR EXAM: Female, 44 years old. PAIN IN JOINTS OF PHALANXES OF BOTH HANDS. NO KNOWN INJURY. TECHNIQUE: 3 view(s) of the hand. COMPARISON: None. FINDINGS: Normal radiocarpal articulation. Normal distal radioulnar joint. Normal visualized carpal bones. Normal carpal articulations Normal carpometacarpal articulation of the thumb. Normal second through fifth carpometacarpal joints. Normal metacarpi. Normal metacarpophalangeal joint of the thumb. Normal interphalangeal joint of the thumb. Normal proximal and distal phalanges of the thumb. Normal metacarpophalangeal joints of the second through fifth fingers. Normal proximal and distal interphalangeal joints of the second through fifth fingers. Normal phalanges of the second through fifth fingers. The soft tissue structures are unremarkable. RAD/Hand Min 3 Views IMPRESSION: Normal x-ray examination of the hand. Electronically Signed: Alec Jiménez, at 15:26 EDT , Service support ,
== END ==
PROVIDERS: PCP Internal Medicine; Referring Provider Internal Medicine; Visit Provider Internal Medicine
DX: M25.549 Pain in joints of unspecified hand (principal)
CPT/HCPCS: 73130

== ENCOUNTER → 2019-08-23 14:23 | Outpatient (CLI) | payer BC, SELFPAY ==
[2019-08-17 13:20] VITALS: BMI 38.7
--- NOTE | 2019-08-23 14:24 | CT_ITS ---
STUDY: CT ABDOMEN AND PELVIS WITH CONTRAST REASON FOR EXAM: Female, 44 years old. Abdominal pain. RADIATION DOSAGE (If Supplied By Facility): CTDIvol = ( 21.65 ) mGy, DLP = ( 1337.31 ) mGycm TECHNIQUE: Transaxial images were obtained from the dome of the diaphragm to the symphysis pubis with oral contrast. 100 ml of Isovue-300 contrast was administered. Sagittal and coronal images were reconstructed. Individualized dose optimization techniques were used for this CT. COMPARISON: 01/20/2017 FINDINGS: The visualized lung bases are clear. The visualized portions of the heart and pericardium are within normal limits. There are no calcified gallstones present. The liver is low in density, consistent with fatty infiltration. The spleen is normal in size. The pancreas is within normal limits. The adrenal glands are within normal limits. There are no renal or ureteral stones. There is no hydronephrosis. There are no focal renal lesions. Normal visualized stomach. There is no bowel obstruction or inflammation. The appendix is visualized and appears normal. The aorta is normal in caliber. There is no abdominal or pelvic free air, free fluid, fluid collection or lymphadenopathy. There are no destructive osseous lesions. There is fusion hardware spanning L5/S1. There is a 3.2 x 2.4 x 1.8 cm fluid collection in the right lower quadrant anterior abdominal wall which may represent a seroma or a chronic hematoma (image 106 [address]/Abdomen/Pelvis WITH Contrast IMPRESSION: 3.2 x 2.4 x 1.8 cm fluid collection in the right lower quadrant anterior abdominal wall which may represent a seroma or a chronic hematoma. No bowel obstruction or inflammation. Normal appendix. Normal kidneys. No hydronephrosis. Fatty liver. Electronically Signed: Theodore Jett, at 16:49 EDT Tel , Service support ,
== END ==
PROVIDERS: PCP Internal Medicine; Referring Provider Surgery; Visit Provider Surgery
DX: R10.9 Unspecified abdominal pain (principal)
CPT/HCPCS: 74177; Q9967; A4216

== ENCOUNTER → 2019-09-14 09:20 | Outpatient (CLI) | payer BC, SELFPAY ==
[2019-08-31 08:30] VITALS: BMI 38.7
[2019-09-14 09:02] VITALS: BMI 38.7
[2019-09-14 10:42] LABS: Absolute Lymphocyte Count 3.39 X10^3/uL (0.83-4.51); Absolute Neutrophil Count 4.5 X10^3/uL (2.0-7.7); Basophil# 0.04 X10^3/uL; Basophil% 0.5 % (0-1); Eosinophil# 0.12 X10^3/uL; Eosinophils% 1.4 % (0-5); Hematocrit 40.3 % (37-47); Hemoglobin 13.4 g/dL (12.0-15.0); Lymphocyte # 3.39 X10^3/ul (4.0); Lymphocyte % 39.4 % (19-41); Mean Corp Hgb Conc 33.3 g/dL (32-36); Mean Corpuscular Volume 93.3 fL (81-99); Mean Platelet Vol. 10.3 fl (6.2-12.0); Monocyte# 0.58 X10^3/uL; Monocyte% 6.7 % (0-10); NRBC Flagged by Analyzer 0 % (0-5); Neutrophil # 4.46 X10^3/uL (2.7-7.7); Neutrophil % 51.8 % (47-70); Platelet Count 323 K/mm3 (150-450); RBC Distribution Width CV 13.3 % (11.6-14.6); RBC Distribution Width SD 45.8 fl (35.1-43.9); Red Blood Count 4.32 M/mm3 (4.2-5.4); White Blood Count 8.6 K/mm3 (4.4-11.0)
[2019-09-14 12:41] LABS: Estradiol 59.9 pg/mL; Follicle Stimulating Hormone 8.1 mIU/mL; Prolactin 4.7 ng/mL; T4 Free Direct 1.26 ng/dL (0.76-1.46); Thyroid Stim Hormone (TSH) 0.64 uIU/mL (0.358-3.74)
[2019-09-16 12:55] LABS: 17-Hydroxyprogesterone 38 ng/dL (.)
[2019-09-17 04:06] LABS: DHEA Sulfate 85.3 ug/dL (41.2-243.7)
[2019-09-18 04:44] LABS: Testosterone Free 0.7 pg/mL (0.0-4.2)
== END ==
PROVIDERS: Obstetrics & Gynecology; PCP Internal Medicine; Referring Provider Internal Medicine; Visit Provider Internal Medicine
DX: N89.8 Other specified noninflammatory disorders of vagina (principal); O09.529 Supervision of elderly multigravida, unspecified trimester; R00.2 Palpitations; Z3A.00 Weeks of gestation of pregnancy not specified
CPT/HCPCS: 36415; 82627; 82670; 83001; 83498; 84146; 84402; 84439; 84443; 85025; 87070; 87205; 93225; 93226; 82626

== ENCOUNTER → 2019-09-16 14:15 | Outpatient (CLI) | payer BC, SELFPAY ==
[2019-09-14 09:02] VITALS: BMI 38.7
--- NOTE | 2019-09-16 14:16 | US_ITS ---
STUDY: ULTRASOUND TRANSVAGINAL CLINICAL: Female, 44 years old. Irregular menses TECHNIQUE: Transvaginal COMPARISON: None. FINDINGS: Normal uterine size measuring 9.2 x 6.7 x 5.1 cm in maximal craniocaudal dimension. There are no myometrial masses. Normal endometrial thickness measuring eight mm. There are no endometrial masses, and there is no fluid in the endometrial cavity. Nabothian cysts at the uterine cervix. Nonvisualization of the right ovary. Normal left ovary, measuring 2.3 x 1.6 x 2.4 cm. There are multiple follicles without a dominant cyst. There is no free fluid in the pelvis. US/Transvaginal Non- IMPRESSION: Nabothian cysts. Electronically Signed: Luis Bates DO at 23:53 EDT Tel [phone], Service support ,
== END ==
PROVIDERS: PCP Internal Medicine; Referring Provider Obstetrics & Gynecology; Visit Provider Obstetrics & Gynecology
DX: N92.6 Irregular menstruation, unspecified (principal)
CPT/HCPCS: 76830

== ENCOUNTER → 2019-10-12 13:30 | Outpatient (CLI) | payer BC, SELFPAY ==
[2019-10-12 13:19] VITALS: BMI 39.6
--- NOTE | 2019-10-12 13:30 | EMB_PTH ---
PATIENT: KAREL VAIL LOC: [facility] U#:[id number] AGE/SX: 49/F ROOM: RE10/12/[address]: ROBY Franco : 1975 BED: DIS: SPEC #: [id number] RECD: 10/12/19 16:57 STATUS: CHRISTIANO PABLO #: [id number] BEST: 10/12/19 13:[address]: Emilee Sargent NP DEPT: SURGICAL PATHOLOGY RECD BY: Latasha Harper ENTERED: 10/13/19 09:31 SP TYPE: ENDOM BX/C PRIMO DR: Dr. Pam Louise DO Tissues: Endometrium, NOS Procedures: Surgery Specimen Level IV HEADER OPERATION: Endometrial biopsy PRE-OP DIAGNOSIS: Irregular menses TISSUE SUBMITTED: Endometrial biopsy MICROSCOPIC DIAGNOSIS Endometrial biopsy: Proliferative endometrium. SHADIA:adne 10/14/19 MICROSCOPIC DESCRIPTION Slides are reviewed. GROSS DESCRIPTION Received is one container labeled with the patient's name and not further designated. The specimen consists of multiple fragments of hemorrhagic soft tissue mixed with mucoid tissue that in aggregate measure 2.5 x 2 x 0.1 cm. The specimen is totally submitted in one cassette. / SJ:dane 10/13/19 TC:4 CPT: 05640
== END ==
PROVIDERS: PCP Internal Medicine; Referring Provider Nurse Practitioner Women's Health; Visit Provider Nurse Practitioner Women's Health
DX: N92.6 Irregular menstruation, unspecified (principal)
CPT/HCPCS: 88305

== ENCOUNTER → 2019-12-22 12:00 | Outpatient (CLI) | payer BC, SELFPAY ==
[2019-04-27 09:59] VITALS: BMI 39.9
[2019-12-01 13:03] VITALS: BMI 38.7
--- NOTE | 2019-12-22 12:00 | BI_ITS ---
MAMMOGRAPHY - BILATERAL SCREENING REASON FOR EXAM: Female, 44 years old. Routine annual screening examination. PERTINENT HISTORY: Aunt with breast cancer. Remote right excisional breast biopsy. TECHNIQUE: Digital bilateral breast zander (3D mammographic acquisition) in the CC and MLO projections. 2-D mediolateral oblique (MLO) and craniocaudad (CC) views of both breasts were obtained. CAD: Full Field Digital Mammography with Computer Added Detection was performed. COMPARISON: Comparison is made with prior study dated 01/18/2018 and 01/16/2017. FINDINGS: Breast Composition: The breasts are almost entirely fatty. There are no dominant masses or suspicious calcifications. No other significant abnormalities are identified. There has been no significant change since the prior study. BI/SCREEN MAMM (CAD) W/ZADNER BILAT IMPRESSION: Stable bilateral screening mammogram. Yearly follow-up mammogram recommended. (A) ASSESSMENT CATEGORY: BIRADS Category 1: Negative. A letter regarding these results will be sent to the patient by the facility within 30 days. Approximately 10% of breast cancers are not detected by mammography. A normal mammogram should not delay biopsy of a clinically suspicious abnormality. [id number] Electronically Signed: Alec Jiménez, at 12:58 EDT , Service support ,
== END ==
PROVIDERS: PCP Internal Medicine; Referring Provider Obstetrics & Gynecology; Visit Provider Obstetrics & Gynecology
DX: Z12.31 Encounter for screening mammogram for malignant neoplasm of breast (principal)
CPT/HCPCS: 77063; 77067

== ENCOUNTER 2020-01-04 08:00 | Outpatient (RCR) | payer BC, SELFPAY ==
[2019-10-12 13:19] VITALS: BMI 39.6
--- NOTE | 2019-11-21 17:35 | HP.PTEVAL_ITS ---
Patient's Visit Information KARLE VAIL is a 44 year old F referred to Physical Therapy by Dr. Pam Fox, DO with a diagnosis of ABDOMINAL WEAKNESS S/P ABDOMINAL SURGERY AND SPINE PAIN. Date of Evaluation: 11/21/19 Physical Therapist: Dorothy Garcia, PT, Cert MDT - Visit Plan Frequency: 2-3x /Week Duration: 4-6 Weeks Plan: * DIASTIS RECTI* *H/O THORACIC TRANSVERSE MYELITIS*. DIASTIS RECTI SPECIFIC EXERCISES. TRIAL OF CERVICAL US. LAND THER EX FOR SPINE AND ABDOMINAL PAIN RELIEF, POSTURE CORRECTION/STRENGTHENING, INSTRUCTION IN APPROPRIATE BODY MECHANICS AND ACTIVITY MODIFICATIONS. DLS WITH A NEUTRAL SPINE. DARREN UE AND LE ROM, STRETCHING AND STRENGTHENING. HEP INSTRUCTION. - Subjective Work/Leisure: UNEMPLOYEED. PATIENT REPORTS HAVING IN FEB 2019 AND ABDOMINAL SURGERY TO REMOVE BENIGN TUMOR OCT 03 2019 WITH RESIDUAL NERVE DAMAGE. PATIENT REPORTS SHE HAS BEEN REFERRED TO PT BY BOTH DR. FOX FOR HER ABDOMEN AND DR. MONTERO FOR HER SPIINE. Disability: NO. Present symptoms: NECK PAIN AND ABDOMINAL PAIN. NO NEW EXTREMITY PAIN, NUMBNESS OR TINGLING. PATIENT RELATES EXTREMITY SX'S TO PRE-EXISTING CONDITIONS AND STATES SHE IS HERE FOR NECK AND ABDOMINAL PAIN. Present since: CHRONIC NECK PAIN AND ABDOMINAL PAIN THAT SHE RELATES TO THE MASS AND ABDOMINAL SURGERY. Pain Scale: NECK: WORST 7/10, LEAST 2/10. ABDOMEN: WORST 6/10, LEAST 1/10. Currently: NECK: 3/10, ABDOMEN: 3/10. Commenced as a result of: NECK: DDD AND STENOSIS. ABDOMEN: MASS AND SURGERY. Worse: POOR POSTURE, TWISTING, BENDING, LIFTING, STRESS. Better: ICE HELPS THE NECK PAIN, LYING DOWN HELPS THE ABDOMEN. Disturbed sle ep: YES. Previous history/Previous treatment: NO NECK SUGERY BUT HAS HAD MULTIPLE CERVICAL TOMEKA'S - 4-6. LOW BACK PT. NECK PT. CHIROPRACTOR FOR NECK AND BACK TOO. Coughing/sneezing/straining: NEGATIVE. Gait: DECREASED STAMINA BUT OTHERWISE NORMAL. Difficulty initiating urinatin: NO. NO DIZZINESS, DIFFICULTY SWOLLOWING OR TINNITIS. Accidents: NO. Unexplained weight loss: NO. Imaging: NO RECENT SPINE X-RAYS. PMH: TRANSVERSE MYELITIS 2014, HTN, HYPOTHYROIDISM, LUMBAR FUSION 2004, R CTR, DARREN ANKLE SX'S, LEFT THUMB SURGERY. OTHER: PATIENT HAS ACCESS TO A POOL AND A MINI WEIGHT ROOM. HAS DONE POOL EX'S RECENT A FEW WEEKS AGO. OTHER: PATIENT DENIES HAVING ANY CURRENT PHYSICIAN OR SURGEON RESTRICTIONS. - Objective Sitting Posture/Standing Posture: POOR. FORWARD HEAD. ROUNDED SHOULDERS. Active Correction of posture: BETTER. Other Observations: INDEP GAIT AND TRANSFERS. Motor deficit: DARREN UE AND LE'S GROSSLY 5/5 WITH MMT'ING EXCPET HIPS: RIGHT 4/5, LEFT 4-/5 AND DARREN SCAPULAE 4/5. Sensory deficits: NT. ROM deficit: DARREN UE'S AND LE'S WFL. Dural Signs: NEGATIVE DARREN UE AND LE'S. Cervical Mvmt Loss: Flex: MIN. Pro: NIL. Ext: MOD. Ret: MOD. RSB: MIN. LSB: MOD. R Rot: MIN. L Rot: MIN. PATIENT C/O INCRASED NECK PAIN WITH CERVICAL FLEX, RETRACTION AND L SB ROM TESTING. LUMBAR MVMT LOSS: FLEX - MIN. EXT - MOD. RSG - MOD. LSG - MOD. PATIENT C/O MILD INCREASED LBP WITH LUMBAR ROM TESTING ALL PLANES. Postural strength: POOR. Palpation: LONG ABDOMINAL INCISION LOOKS GOOD WITHOUT ANY SIGNS OF INFECTION. PATIENT REPORTS ABDOMINAL SEPERATION STARTING APPROX 2012 AFTER AND IT CONTINUED TO GET WORSE. TREATMENT: NEUROMUSCULAR REEDUCATION - RETRAINING OF MVMT AND POSTURE FOR SITTING, LYING AND STANDING ACTIVITIES. - Goals Goal 1:: DECREASE C/O NECK AND ABDOMINAL PAIN Goal Time Frame: 4-6 Weeks Goal 2:: IMPROVE LIFTING, WALKING, SITTING, STANDING, SOCIAL LIFE AND CHILDCARE/HOMEMAKING FUNCTION Goal Time Frame: 4-6 Weeks Goal 3:: INSTRUCT IN PROPHYLAXIS Goal Time Frame: 4-6 Weeks - Anticipated Interventions Patient/Client Instruction: Educate patient on: Condition, Plan of Care, Risk Factors, Benefits of Fitness Program For the Purpose of:: To improve self management Therapeutic Exercise to Include: Strength training, Endurance training, Body mechanics, Postural training, Flexibilty training, Neuromotor development, Dynamic Lumbar Stabilization, Scapular Strength/Stabilization For the Purpose of:: To decrease pain, To increase ROM, To improve muscle performance and motor function, To increase tolerance to activity/condition/position, To improve ability of physical actions for home/community/work/leisure Cryotherapy (ice pack, ice massage): Yes Thermo therapy (hot pack): Yes Ultrasound (thermal/non thermal): Yes For the Purpose of:: To decrease pain, To improve nutrient delivery to tissue Thank you for the opportunity to evaluate your patient. For Medicare and Medicare HMO plans, please review the plan of care and approve it. It will need to be FAXED BACK to us at [phone] for Medicare purposes. For Medicare only, by signing this I certify the plan of care. Please let me know if there are questions or concerns regarding this plan of care. Physician Signature: Date:
--- NOTE | 2020-01-04 09:47 | HP.PTDCSUM ---
It has been my pleasure to treat KAREL VAIL referred by Dr. Pam Louise DO, with the diagnosis of ABDOMINAL WEAKNESS S/P ABDOMINAL SURGERY AND SPINE PAIN for a total of 7 visit(s). Discharge Date: 01/04/20 Please see the following information for a summary of their discharge status. Subjective: PATIENT REPORTS MISSING PT DUE TO SINUS INFECTION. PATIENT REPORTS INJECTION IN NECK PENDING JAN 24 2020. HYSTERECTOMY PENDING 01/17/20. WOULD LIKE TO TODAY TO BE LAST PT BEREKET'T DUE TO UPCOMING INTERVENTIONS. LOW BACK Pain Intensity (Out of 10): 5 NECK Pain Intensity (Out of 10): 5 ABDOMINAL PAIN Pain Intensity (Out of 10): 0 % Improvement: 30 Objective/Function: PATIENT WAS SEEN TODAY FOR RE-ASSESSMENT OF PROGRESS TOWARD THE SET PT GOALS AND THE NEED FOR FURTHER PHYSICAL THERAPY VS READINESS FOR DISCHARGE. PATIENT HAS LEARNED AND TOLERATED A PROGRESSIVE RESISTIVE HEP AND IS APPROPRIATE FOR DISCHARGE AT THIS POINT BASED ON UPCOMING INTERVENTIONS. PATIENT REQUESTING AND AGREEABLE TO D/C. UPON EXAM TODAY: Motor deficit: DARREN UE AND LE'S GROSSLY 5/5 WITH MMT'ING EXCPET HIPS: RIGHT 4/5, LEFT 4-/5 AND DARREN SCAPULAE 4/5. PATIENT ALSO WITH PAIN LIMITED RIGHT ELBOW AND WRIST STRENGTH. Sensory deficits: NT. ROM deficit: DARREN UE'S AND LE'S WFL EXCEPT RIGHT ELBOW. PATIENT HAS PAIN LATERAL IN THE ELBOW TRYING TO EXTEND HER RIGHT ELBOW AND WITH WRIST EXTENSION BUT ABLE TO GET FULL ROM AND ABLE TO TOLERATED ALL EX'S WITH MINIMAL MODIFICATIONS FOR RIGHT ELBOW PAIN. Dural Signs: NEGATIVE DARREN UE AND LE'S. Cervical Mvmt Loss: Flex: MIN. Pro: MIN. Ext: MOD. Ret: MOD. RSB: MIN. LSB: MOD. R Rot: MOD. L Rot: MIN. PATIENT C/O INCRASED NECK PAIN WITH CERVICAL FLEX, RETRACTION AND L SB ROM TESTING. LUMBAR MVMT LOSS: FLEX - MIN. EXT - MOD. RSG - MOD. LSG - MOD. PATIENT C/O MILD INCREASED LBP WITH LUMBAR ROM TESTING ALL PLANES. Postural strength: POOR Goal 1:: DECREASE C/O NECK AND ABDOMINAL PAIN Goal Progress: Progressing Goal 2:: IMPROVE LIFTING, WALKING, SITTING, STANDING, SOCIAL LIFE AND CHILDCARE/HOMEMAKING FUNCTION Goal Progress: Progressing Goal 3:: INSTRUCT IN PROPHYLAXIS Goal Progress: Progressing Plan: D/C If there are questions or concerns regarding this patient's physical therapy, please feel free to call me at [phone]. Thank you for the referral of this patient. Sincerely, Dorothy Garcia, PT, Cert MDT
== END 2020-01-04 19:00 | disposition home or self-care (01) ==
LOC: PT 08:00
PROVIDERS: PCP Internal Medicine; Referring Provider Internal Medicine; Visit Provider Internal Medicine
DX: M50.30 Other cervical disc degeneration, unspecified cervical region (principal); M51.9 Unspecified thoracic, thoracolumbar and lumbosacral intervertebral disc disorder; M12.9 Arthropathy, unspecified; M96.1 Postlaminectomy syndrome, not elsewhere classified; M47.817 Spondylosis without myelopathy or radiculopathy, lumbosacral region; M51.37 Other intervertebral disc degeneration, lumbosacral region; M47.812 Spondylosis without myelopathy or radiculopathy, cervical region; R19.8 Other specified symptoms and signs involving the digestive system and abdomen; M54.9 Dorsalgia, unspecified; Z98.890 Other specified postprocedural states
CPT/HCPCS: 87624; 88175; 97014; 97035; 97110; 97112; 97162; 97164; 97530; G0145; G0283

== ENCOUNTER 2020-01-17 15:56 | Observation (INO) | payer BC, SELFPAY ==
[2019-12-01 13:03] VITALS: BMI 38.7
[2020-01-05 10:10] VITALS: BMI 41.0
[2020-01-12 09:25] LABS: Magnesium 1.8 mg/dL (1.6-2.6)
[2020-01-12 09:34] LABS: Hemoglobin A1c 6.6 % (3.8-5.6)
[2020-01-17] VITALS (16 sets, daily range): BP systolic 124–150; BP diastolic 73–103; PULSE 71–104; RESP 16–18; TEMP 36.4–37.3; O2SAT 92–100; BMI 40.4
--- NOTE | 2020-01-17 07:20 | HP.PCM_ITS ---
- Problem List (1) Dyspareunia due to medical condition in female Status: Acute Comment: vaginal estrogen to start after evaluation of abnormal bleeding. 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 Is patient in pain?: No Allergies adhesive Adverse Reaction (Verified 01/05/20 10:11) Rash amitriptyline HCl [From Elavil] Adverse Reaction (Verified 01/05/20 10:11) Other clarithromycin [From Biaxin] Adverse Reaction (Verified 01/05/20 10:11) Nausea/Vom/Diarrhea methotrexate Adverse Reaction (Verified 01/05/20 10:11) Other vortioxetine [From Trintellix] Adverse Reaction (Verified 01/05/20 10:11) nausea Medications dulaglutide 1.5 mg/0.5 mL subcutaneous pen injector 1.5 mg SC QWEEK 04/27/19 [History Confirmed 01/05/20] labetalol 100 mg tablet 100 mg PO BID #180 tab 04/27/19 [Rx Confirmed 01/05/20] multivitamin 1 tab PO DAILY 04/27/19 [History Confirmed 01/05/20] sitagliptin 100 mg tablet 100 mg PO DAILY 04/27/19 [History Confirmed 01/05/20] cholecalciferol (vitamin D3) 125 mcg (5,000 unit) capsule 125 mcg PO DAILY 08/17/19 [History Confirmed 01/05/20] doxycycline hyclate 50 mg capsule 50 mg PO BID 08/17/19 [History Confirmed 01/05/20] levothyroxine 150 mcg capsule 125 mcg PO DAILY cap 08/17/19 [History Confirmed 01/05/20] losartan 100 mg tablet 50 mg PO BID tab 08/17/19 [History Confirmed 01/05/20] milnacipran 50 mg tablet 50 mg PO BID 08/17/19 [History Confirmed 01/05/20] estradiol See Rx Instructions VAGINAL .COMPLEX #42.5 g 09/14/19 [Rx Confirmed 01/05/20] galcanezumab-gnlm 120 mg/mL subcutaneous pen injector 120 mg SC QMONTH 09/14/19 [History Confirmed 01/05/20] metronidazole 500 mg tablet 500 mg PO BID #14 tab 09/15/19 [Rx Confirmed 01/05/20] Is last menstrual period known: No Post menopausal: No Patient : No PFSH Medical History Diabetes mellitus type 2, controlled (Chronic) lower back injection (Acute) Degenerative lumbar spinal stenosis (Chronic) Depression (Chronic) Fibromyalgia (Chronic) History of syndactyly (Chronic) Hypothyroid (Chronic) Migraine with aura (Chronic) Transverse myelitis (Chronic) Fatty liver disease, nonalcoholic (Resolved) 29 weeks gestation of (Inactive) Degenerative cervical spinal stenosis (Inactive) Diabetes in (Inactive) Diastolic dysfunction (Inactive) Dyspnea (Inactive) Essential (primary) hypertension (Inactive) Fatigue (Inactive) PFO (patent foramen ovale) (Inactive) (Inactive) Segmental and somatic dysfunction of cervical region (Inactive) Segmental and somatic dysfunction of lumbar region (Inactive) Segmental and somatic dysfunction of pelvic region (Inactive) Segmental and somatic dysfunction of sacral region (Inactive) Segmental and somatic dysfunction of thoracic region (Inactive) Supervision of high risk , antepartum (Inactive) Surgical History D&E (Resolved) H/O dilation and curettage (Resolved) H/O sinus surgery (Resolved) History bilateral tendon repair of feet (Resolved) History left thumb repair (Resolved) History of (Resolved) History of carpal tunnel release (Resolved) History of laparoscopic cholecystectomy (Resolved) History of partial thyroidectomy (Resolved) History of placement of ear tubes (Resolved) History of premature rupture of membranes (PPROM) (Resolved) History of right breast biopsy (Resolved) History of tonsillectomy and adenoidectomy (Resolved) Hx LEEP (loop electrosurgical excision procedure), cervix, (Resolved) Family History Mother Diabetes Heart disease Kidney disease Hypertension High cholesterol Father High cholesterol Skin cancer Diabetes Hypertension Cancer skin cancer Grandmother Asthma Colon cancer Diabetes Aunt Breast cancer Uncle Colon cancer Social History (Updated 01/05/20 @ 10:[address] 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 Female Reproductive History Questions: Metorrhagia: Yes Menopausal Symptoms: No night sweats Pregancy History 6 Elective abortions Hx Para 4 Spontaneous abortions 2 Hx # Term Pregnancies 3 Ectopic pregnancies Hx # Pregnancies 3 Multiple births # of living children 4 Past Pregnancies Del. Date Name GA/Weeks Outcome Route Bth Weight [facility] Roman Dupree 35 live - 6lb s Male spinal [facility] 09/23/09 miscarriage 10/04/10 Dionisio 37 live - full term 6lbs Male [facility] Dr. Nicole 10/27/11 baby boy still 10/11/12 Fermin 38 live - full term 6lbs Male spinal [facility] 03/14/19 Randa 36 live - 5lbs 4 oz Female [facility] Delivery Date: 06/16/06 distress; PROM; did not dilate Agnieszka Leyva Delivery Date: 09/23/09 No notes to display Delivery Date: 10/04/10 GHTN Agnieszka Leyva Delivery Date: 10/27/11 d and e in [place], unsure of details. neg APL testing. Tracy Hernandez Delivery Date: 10/11/12 nonreactive NST Agnieszka Leyva Delivery Date: 03/14/19 Diabetes. LaurentElvie ROS Const Constitutional: Denies fatigue, night sweats, weight gain or weight loss ENT ENT: Reports system reviewed and no additional complaints, except as docu Cardio Card: Denies chest pain Resp Resp: Denies cough or dyspnea GI GI: Reports as per HPI; denies constipation, nausea or vomiting : Reports as per HPI; denies nipple discharge, vaginal discharge, vaginal dryness, vaginal odor or vaginal itching Musc Musc: Denies joint pain, back pain or muscle weakness Skin Skin/Breast: Denies hair loss, change in hair, dry skin, breast lump, breast pain, breast skin changes or nipple discharge Neuro Neuro: Reports system reviewed and no additional complaints, except as docu Psych Psych: Reports system reviewed and no additional complaints, except as docu Endo Endo: Denies cold intolerance, excessive sweating, heat intolerance or increased thirst Anup/Lymph Hematologic/Lymphatic: Denies easy bleeding, Denies easy bruising, Denies enlarged lymph nodes Exam Const General: cooperative, healthy appearing, comfortable, no acute distress, well developed Orientation: alert [facility] Head: normal to inspection, normocephalic Ears: hearing grossly normal bilaterally, external ears normal Nose: external nose normal, nares normal Face and sinus: normal facial exam Neck Neck: normal visual inspection, no lymphadenopathy Thyroid: thyroid normal Chest Chest palpation & inspection: normal inspection of the chest Resp Effort & Inspection: normal respiratory effort Auscultation: clear to auscultation bilaterally Cardio Rate: regular rate Rhythm: regular rhythm Heart Sounds: S1 normal, S2 normal GI Inspection: normal to inspection, non-distended Palpation: soft, no hepatosplenomegaly General: bladder normal to palpation External Female Exam: normal external appearance, normal appearance of the ure thra Urethra: normal appearance of the urethra, normal palpation, no discharge Speculum Exam - Vagina: normal appearance of the vagina, normal vaginal discharge Speculum Exam - Cervix: normal appearance of the cervix, nontender Bimanual Exam- Vagina & Uterus: normal bimanual exam, uterine size normal, bladder normal to palpation, uterine shape normal, No cervical tenderness, uterine mobility normal, uterine consistency normal, normal cervical palpation, uterus non-tender Bimanual Exam- Adnexa, other: normal adnexae, adnexae mobile, no adnexal masses, pelvic support normal Pelvic Support: normal Musc Other: gross motor intact no deficits, full bilateral strength Skin General: no rashes or lesions noted Neuro General: alert, awake, moves all extremities, no focal motor deficits Motor: muscle tone normal throughout Extrem General: normal to inspection, no pedal edema Psych Appearance: grossly normal Mental Status: mental status grossly normal Affect: normal affect Speech and Movement: speech and movement normal Assessment & Plan Problems 1. Irregular menses N92.6 failed medical management plan JANETT NOBLE 2. Dyspareunia due to medical condition in female N94.19 vaginal estrogen to start after evaluation of abnormal bleeding. 3. Diabetes mellitus type 2, controlled E11.9 class C Plan After discussing the patient's diagnosis and treatment plan options, patient wishes to proceed with surgical management. I have discussed with the patient the risks, benefits, and alternatives of the procedure which include but are not limited to risks of anesthesia, bleeding, infection, possible damage to bowel, bladder, or surrounding vasculature which could lead to additional surgery to evaluate any complications. Patient agrees to procedure and wishes to proceed. ACOG/uptodate references given for additional information regarding procedure. Plan Detail Goals Decrease spasm Improve intersegmental motion Decrease pain Barriers Cervical stenosis Previous lumbar surgery with hardware Coding Level of Care Code No Charge Diagnoses Irregular menses N92.6 Dyspareunia due to medical condition in female N94.19 Diabetes mellitus type 2, controlled E11.9 UPDATE- I have seen the patient and performed any clinically relevant updates to the history and physical exam. Tracy Hernandez MD
[2020-01-17] MEDS: dexAMETHasone 10 MG/ML Vial 8 MG IV (07:32)
[2020-01-17] MEDS: Lactated Ringers 1,000 ML 40 ML IV (07:32)
[2020-01-17] MEDS: Enoxaparin 40 MG/0.4 ML Syringe SC (07:32)
[2020-01-17] MEDS: Phenazopyridine 95 MG Tablet 190 MG PO (07:33)
[2020-01-17] MEDS: Acetaminophen 500 MG Tablet 1000 MG PO ×3 (07:33→17:53)
[2020-01-17] MEDS: Scopolamine 1mg/72hr Patch 1 PATCH TRANSDERM. (07:33)
[2020-01-17] MEDS: Gabapentin 600 MG Tablet PO (07:34)
[2020-01-17] MEDS: Celecoxib 200 MG Capsule 400 MG PO (07:34)
[2020-01-17 07:36] LABS: Bedside Glucose 125 mg/dL (70-110)
[2020-01-17 07:36] LABS: Internal QC Validated? YES +Cl - CLEAR BKGD; Pregnancy, Urine Negative Negative
[2020-01-17] MEDS: Cefazolin 2 GM in 0.9% Normal Saline 100 ML IV (09:05)
--- NOTE | 2020-01-17 09:05 | HYST_PTH ---
PATIENT: KAREL VAIL LOC: MS3 U#:[id number] AGE/SX: 44/F ROOM: MS317 RE01/17/[address]: Dr. Tracy Hernandez MD : 1975 BED: 1 DIS: 01/18/2020 SPEC #: [id number] RECD: 01/17/20 13:20 STATUS: CHRISTIANO RETed #: [id number] BEST: 01/17/20 09:[address]: Tracy Hernandez DEPT: SURGICAL PATHOLOGY RECD BY: Norma Hughes ENTERED: 01/17/20 13:27 SP TYPE: HYSTERECT OTHR DR: Dr. Pam Louise DO Tissues: Uterus, NOS Procedures: Surgery Specimen Level V HEADER OPERATION: ERAS, hysterectomy, LAVH, salpingectomy, cysto PRE-OP DIAGNOSIS: Dyspareunia; irregular menses TISSUE SUBMITTED: Uterus and bilateral fallopian tubes MICROSCOPIC DIAGNOSIS Uterus and bilateral fallopian tubes, hysterectomy and bilateral salpingectomy: Cervix - mild chronic inflammation. Endometrium - proliferative endometrium. Myometrium - an intramural leiomyoma (0.6 cm in greatest dimension). - Focal adenomyosis. Bilateral fallopian tubes - no pathologic diagnosis. SHADIA:dane 01/18/20 MICROSCOPIC DESCRIPTION Slides are reviewed. GROSS DESCRIPTION Received in fixative is one container labeled with the patient's name and designated uterus. The specimen consists of a uterus with attached cervix and attached right and left fallopian tubes. The uterus with cervix measures 12.5 x 6 x 5 cm and weighs 174 gm. The ectocervix is oval and unremarkable. The endocervical canal measures 6 cm in length and is grossly unremarkable. The triangular endometrial cavity measures 4.2 x 3 cm. The velvety, light sanchez endometrium measures up to 0.2 cm in thickness. The myometrium measures 3 cm in average thickness and contains a single rubbery nodule measuring 0.6 cm in greatest dimension. The right and left fallopian tubes are similar in appearance with normal fimbriated ends and measuring 5 cm in length and 0.6 cm in average diameter. [employer]st[employer] Leader sections are submitted in nine cassettes as follows: 1 - anterior cervix, 2 - posterior cervix, 3 & 4 - anterior uterine wall, 5 & 6 - posterior uterine wall, 7 - myometrial nodule, 8 - right fallopian tube, 9 - left fallopian tube. / AM:dane 01/17/20 TC:5 CPT: 61124
[2020-01-17] MEDS: Vasopressin 20 UNITS/ML Vial (09:56)
[2020-01-17] MEDS: Bupivacaine 0.25% 30 ML Vial (11:00)
--- NOTE | 2020-01-17 11:36 | OP.PCM_ITS ---
Problem List (1) Dyspareunia due to medical condition in female Status: Acute Comment: vaginal estrogen to start after evaluation of abnormal bleeding. (2) Irregular menses Status: Acute Comment: failed medical management plan [facility] (3) Diabetes mellitus type 2, controlled Status: Chronic Comment: class C Report of Operation Date of Procedure: 01/17/20 Pre-Operative Diagnosis: AUB pelvic pain Post-Operative Diagnosis: same Surgery/Procedure [facility] Description of Surgical Findings:: vesicouterine adhesions enlarged uterus adenomyosis and pelvic congestion patient transition specialist: Ashley Mills Type of Anesthesia:: General Special Medications: floseal Specimen's removed: uterus tubes Drains: rodriguez Estimated Blood Loss (mL): 100 Fluids Replaced: crystalloid Description of Procedure: Patient received preoperative antibiotics and SCDs were on preoperatively. Patient was taken back to the operating room and placed in the dorsal lithotomy position. General anesthesia was induced and patient was prepped and draped in normal sterile fashion. Uterine manipulator was placed inside the uterus and Rodriguez catheter placed in the bladder. The umbilicus was grasped with towel clamps and an intraumbilical incision was made after injecting with quarter percent Marcaine and a Veress needle entered into the abdomen confirmed to be intra-abdominal with a low opening pressure. Abdomen was insufflated with CO2 gas and the Veress needle removed and the 5 mm trocar was placed under direct visualization without complication. Right and left lower quadrants were transilluminated and injected with quarter percent Marcaine and 5 mm ports placed under direct visualization. Pelvis was well visualized see operative findings for additional information. Bilateral fallopian tubes were identified and transected with the LigaSure device across the mesosalpinx to the level of the utero-ovarian ligament which was also transected with the LigaSure device. The broad ligament was opened up by transecting the round ligament bilaterally and skeletonizing the uterine vessels bilaterally and creating a bladder flap using the LigaSure device. The uterine arteries were transected bilaterally with good visualization of the bladder and the ureters were seen to be inferior lateral to the operative area. Attention was then paid to the vaginal portion of the procedure and the cervix was grasped with Drake clamps and circumferentially injected with dilute vasopressin. A circumferential incision was made and the vaginal mucosa was mobilized off posteriorly and the cul-de-sac entered into sharply and a longneck speculum placed. The anterior cul-de-sac was then identified and entered into sharply. The uterosacral ligaments were clamped cut and suture ligated with 0 Monocryl bilaterally followed by the cardinal ligaments which were clamped cut and suture ligated bilaterally with 0 Monocryl. The uterus serially descended and was removed without difficulty with no morcellation. Pelvic sidewall pedicles were checked and noted to have excellent hemostasis. The vaginal mucosa was reapproximated incorporating the posterior peritoneum. This was reapproximated using 0 Vicryl [id number] sutures. Excellent hemostasis was noted. attention was then paid to the abdominal portion of the procedure again. The pelvis and cul-de-sac was well visualized and no significant active bleeding noted but some raw areas were seen on the peritoneum and the right vaginal angle and therefore floseal was applied. Pressure was taken down and the areas visualized and noted to have excellent hemostasis. All ports were removed under direct visualization without complication and the abdomen was desufflated of air. The instruments removed from the abdomen and the vagina vaginal sweep was negative. Port sites on the abdomen were closed with 4-0 Monocryl interrupted sutures and Steri's and windows were applied. She was awoken and taken recovery in stable condition. Grafts/Implants Used: none - Complications none - Admit VTE Documentation VTE Present on Admission: No VTE Mechan Device Prophylaxis: SCD's Multi Select Codes - Urinary/Genital Urinary/Genital CPT Codes: 22662 LAVH+BS/O <250gr Uterus
[2020-01-17 12:05] LABS: Bedside Glucose 144 mg/dL (70-110)
[2020-01-17] MEDS: Lactated Ringers 1,000 ML 70 ML IV ×2 (12:11→20:19)
[2020-01-17] MEDS: Ketorolac 30 MG/ML Syringe IV ×2 (12:16→17:53)
[2020-01-17] MEDS: Ondansetron 4 MG/2 ML Vial IV (12:16)
[2020-01-17] MEDS: oxyCODONE 5 MG Tablet PO (14:02)
[2020-01-17 15:08] LABS: Absolute Lymphocyte Count 1.25 X10^3/uL (0.83-4.51); Basophil# 0.02 X10^3/uL; Basophil% 0.2 % (0-1); Hematocrit 40.6 % (37-47); Hemoglobin 13.2 g/dL (12.0-15.0); Lymphocyte # 1.25 X10^3/ul (4.0); Mean Corp Hgb Conc 32.5 g/dL (32-36); Mean Corpuscular Hgb 30.5 pg (27.0-32.0); Mean Corpuscular Volume 93.8 fL (81-99); Mean Platelet Vol. 10.3 fl (6.2-12.0); Monocyte# 0.08 X10^3/uL; Monocyte% 0.7 % (0-10); NRBC Flagged by Analyzer 0 % (0-5); Neutrophil % 87.7 % (47-70); Platelet Count 283 K/mm3 (150-450); RBC Distribution Width CV 12.8 % (11.6-14.6); RBC Distribution Width SD 44.6 fl (35.1-43.9); Red Blood Count 4.33 M/mm3 (4.2-5.4); White Blood Count 11.4 K/mm3 (4.4-11.0)
[2020-01-17] MEDS: fentaNYL 100 MCG/2 ML Ampul 50 MCG IV (17:00)
[2020-01-17 18:20] LABS: Bedside Glucose 166 mg/dL (70-110)
[2020-01-17] MEDS: Docusate Sodium 100 MG Capsule PO (22:00)
[2020-01-18] MEDS: Ketorolac 30 MG/ML Syringe IV ×2 (00:58→05:12)
[2020-01-18] MEDS: Acetaminophen 500 MG Tablet 1000 MG PO ×2 (00:59→08:00)
[2020-01-18] MEDS: 0.9% Saline Lock 10 ML Syringe IV ×2 (01:01→05:12)
--- NOTE | 2020-01-18 01:01 | NURSING ---
pt didn't want her blood sugar checked this hospital stay. states she doesn't check her blood sugar on a regular basis.
[2020-01-18 01:04] VITALS: BP 120/86; PULSE 100; RESP 18; TEMP 36.5; O2SAT 98
[2020-01-18 05:08] VITALS: BP 135/77; PULSE 91; RESP 18; TEMP 36.5; O2SAT 98
--- NOTE | 2020-01-18 05:10 | PCM.DC.VHY ---
Discharge Diet: No Restrictions Discharge Activity: Return to Normal Activity, May Not Drive, May Shower May resume sexual activity in: 6-8 weeks Call your doctor if your incision/area has: Continuous Slow Oozing, Sudden Increased Bleeding, Increased Pain/ Swelling, Increased Redness, Foul Smelling Discharge Call your doctor if you observe: Fever of 101 or Higher, Inability to urinate, Inability to have a bowel movement, Using more than one pad per hour Allergies/Adverse Reactions: Allergies adhesive Adverse Reaction (Verified 01/17/20 07:04) Rash amitriptyline HCl [From Elavil] Adverse Reaction (Verified 01/17/20 07:04) Other clarithromycin [From Biaxin] Adverse Reaction (Verified 01/17/20 07:04) Nausea/Vom/Diarrhea methotrexate Adverse Reaction (Verified 01/17/20 07:04) Other vortioxetine [From Trintellix] Adverse Reaction (Verified 01/17/20 07:04) nausea Medications to take at Discharge dulaglutide 1.5 mg/0.5 mL subcutaneous pen injector 1.5 mg SC QWEEK 04/27/19 labetalol 100 mg tablet 100 mg PO BID #180 tab 04/27/19 sitagliptin 100 mg tablet 100 mg PO DAILY 04/27/19 cholecalciferol (vitamin D3) 125 mcg (5,000 unit) capsule 125 mcg PO DAILY 08/17/19 doxycycline hyclate 50 mg capsule 50 mg PO BID 08/17/19 levothyroxine 150 mcg capsule 125 mcg PO DAILY cap 08/17/19 losartan 100 mg tablet 50 mg PO BID tab 08/17/19 galcanezumab-gnlm 120 mg/mL subcutaneous pen injector 120 mg SC QMONTH 09/14/19 Duloxetine Hcl [Cymbalta] 20 mg PO DAILY 01/09/20 Loratadine [Claritin] 10 mg PO DAILY PRN 01/09/20 Naproxen [Naprosyn] 250 - 500 mg PO Q8H PRN PRN #30 tab 01/17/20 Oxycodone HCl/Acetaminophen [Percocet 5-325] 1 - 2 tab PO Q6H PRN PRN 7 Days #15 tab 01/17/20 The following prescriptions were given: Naproxen [Naprosyn] 250 - 500 mg PO Q8H PRN PRN #30 tab PRN Reason: MILD PAIN Transmission Status: Received by [facility] Oxycodone HCl/Acetaminophen [Percocet 5-325] 1 - 2 tab PO Q6H PRN PRN 7 Days #15 tab PRN Reason: Pain Transmission Status: Received by [facility] Primary Care Physician: Pam Louise DO [Primary Care Provider] - Test Results: Test results from this visit will be discussed in further detail at your follow-up appointment, if applicable. Please Follow Up With: Tracy Hernandez MD - [phone]
[2020-01-18] MEDS: Levothyroxine 125 MCG Tablet PO (05:21)
[2020-01-18 06:03] LABS: Hematocrit 35.8 % (37-47); Hemoglobin 11.5 g/dL (12.0-15.0); Mean Corp Hgb Conc 32.1 g/dL (32-36); Mean Corpuscular Hgb 30.3 pg (27.0-32.0); Mean Corpuscular Volume 94.2 fL (81-99); Mean Platelet Vol. 10.5 fl (6.2-12.0); Platelet Count 272 K/mm3 (150-450); RBC Distribution Width CV 12.9 % (11.6-14.6); RBC Distribution Width SD 44.2 fl (35.1-43.9); White Blood Count 11.8 K/mm3 (4.4-11.0)
--- NOTE | 2020-01-18 08:15 | PCM.PN.OB ---
Patient Problems: Active and Suspected Problems (Last Reviewed 01/05/20 @ 10:11 by Agnieszka Leyva) Irregular menses (Acute) failed medical management plan JANETT NOBLE Dyspareunia due to medical condition in female (Acute) vaginal estrogen to start after evaluation of abnormal bleeding. Subjective: Pain controlled, voiding, taking PO well. Denies SOB, CP, chills, leg/calf pain. - Physical Exam Vitals/I&O's: Vital Signs Temp Pulse Resp BP Pulse Ox 97.7 F L 91 18 135/77 H 98 01/18/20 05:08 01/18/20 05:08 01/18/20 05:08 01/18/20 05:08 01/18/20 05:08 Oxygen Flow Rate (L/min) 6 Oxygen Delivery Method Room Air Weight: 250 lb 7.122 oz Body Mass Index (BMI) 40.4 Finger Stick Blood Glucose 144 Intake and Output for Last 24 Hours 01/16/20 01/17/20 01/18/20 23:59 23:59 23:59 Intake Total 1985.67 / 2385.67 1425.33 / 1425.33 Output Total 1250 / 2150 1800 / 1800 Balance 735.67 / 235.67 -374.67 / -374.67 General: Alert, Oriented x3 Abdomen: Soft, Non-Distended - Dressings dry and intact. Appropriately tender Microbiology Past 72 Hours 01/16/20 08:30 Interface Orders SARS-CoV-2 Antigen (Rapid) - Final Laboratory Results 01/17/20 12:03: POC Glucose 144 H 01/17/20 14:50: WBC 11.4 H, RBC 4.33, Hgb 13.2, Hct 40.6, MCV 93.8, MCH 30.5, MCHC 32.5, RDW Std Deviation 44.6 H, RDW Coeff of Dalton 12.8, Plt Count 283, MPV 10.3, Immature Gran % (Auto) 0.400, Neut % (Auto) 87.7 H, Lymph % (Auto) 11.0 L, [place] % (Auto) 0.7, Eos % (Auto) 0.0, Baso % (Auto) 0.2, Absolute Neuts (auto) 10.0 H, Absolute Lymphs (auto) 1.25, Nucleated RBC % 0 01/17/20 18:15: POC Glucose 166 H 01/18/20 05:25: WBC 11.8 H, RBC 3.80 L, Hgb 11.5 L, Hct 35.8 L, MCV 94.2, MCH 30.3, MCHC 32.1, RDW Std Deviation 44.2 H, RDW Coeff of Dalton 12.9, Plt Count 272, MPV 10.5 Current Medications Acetaminophen (Acetaminophen 500 Mg Tablet) 1,000 mg PO Q6 [facility] Last Admin: 01/18/20 08:00 Dose: 1,000 mg Documented by: Docusate Sodium (Docusate Sodium 100 Mg Capsule) 100 mg PO BID [facility] Last Admin: 01/17/20 22:00 Dose: 100 mg Documented by: Duloxetine HCl (Duloxetine Hcl 20 Mg Capsule) 20 mg PO DAILY [facility] Sodium Chloride () 250 mls @ 15 mls/hr IV .[id number] PRN PRN Reason: Saline Flush Ketorolac Tromethamine (Ketorolac 30 Mg/Ml Syringe) 30 mg IV Q6 [facility] Stop: 01/18/20 18:01 Last Admin: 01/18/20 05:12 Dose: 30 mg Documented by: Labetalol HCl (Labetalol 100 Mg Tablet) 100 mg PO BID [facility] Levothyroxine Sodium (Levothyroxine 125 Mcg Tablet) 125 mcg PO DAILY@0600 [facility] Last Admin: 01/18/20 05:21 Dose: 125 mcg Documented by: Linagliptin (Linagliptin 5 Mg Tablet) 5 mg PO DAILY [facility] Loratadine (Loratadine 10 Mg Tablet) 10 mg PO DAILY PRN PRN PRN Reason: ALLERGIES Losartan Potassium (Losartan Potassium 50 Mg Tablet) 50 mg PO BID [facility] Magnesium Chloride (Magnesium Chloride 64 Mg Delay Rel.Tablet) 128 mg PO DAILY PRN PRN PRN Reason: Constipation Nutritional Formula (Lactose Free) (Ensure Enlive 120 Ml Liquid) 120 ml PO TIDCM [facility] Last Admin: 01/18/20 08:01 Dose: 120 ml Documented by: Ondansetron HCl (Ondansetron Odt 4 Mg Tablet) 4 mg PO Q6H PRN PRN PRN Reason: NAUSEA Oxycodone HCl (Oxycodone 5 Mg Tablet) 5 - 10 mg PO Q4H PRN PRN PRN Reason: Pain Score 4-10 Last Admin: 01/17/20 14:02 Dose: 5 mg Documented by: Sodium Chloride (0.9% Saline Lock 10 Ml Syringe) 10 - 40 ml IV UD PRN PRN Reason: SALINE FLUSH Last Admin: 01/18/20 05:12 Dose: 10 ml Documented by: Medical Necessity - Tobacco Use Smoking Status: Never smoker Assessment/Plan All Active Problems (Last Reviewed 01/05/20 @ 10:11 by Agnieszka Leyva) Degenerative cervical spinal stenosis (Acute) Segmental and somatic dysfunction of cervical region (Acute) Segmental and somatic dysfunction of lumbar region (Acute) Segmental and somatic dysfunction of pelvic region (Acute) Segmental and somatic dysfunction of thoracic region (Acute) Irregular menses (Acute) Dyspareunia due to medical condition in female (Acute) JANETT BS POD#1 Routine postop care. Normal diet. Home today.
[2020-01-18 09:16] VITALS: BP 134/85; PULSE 81; RESP 18; TEMP 36.6; O2SAT 97
== END 2020-01-18 09:39 | disposition home or self-care (01) ==
LOC: SDC 16:03 → MS3 16:03
PROVIDERS: Anesthesiology; Admitting Provider Obstetrics & Gynecology; PCP Internal Medicine; Referring Provider Obstetrics & Gynecology; Visit Provider Obstetrics & Gynecology
PROC: 0UT9FZZ Resection of Uterus, Via Natural or Artificial Opening With Percutaneous Endoscopic Assistance (ICD-10-PCS; CPT 58552; principal; 2020-01-17 08:40)
DX: D25.1 Intramural leiomyoma of uterus (principal); N72 Inflammatory disease of cervix uteri; E11.9 Type 2 diabetes mellitus without complications; N80.0 Endometriosis of uterus; M48.02 Spinal stenosis, cervical region; M48.061 Spinal stenosis, lumbar region without neurogenic claudication; E03.9 Hypothyroidism, unspecified; F32.9 Major depressive disorder, single episode, unspecified; Q21.1 Atrial septal defect; Z79.899 Other long term (current) drug therapy; Z79.84 Long term (current) use of oral hypoglycemic drugs; Z79.1 Long term (current) use of non-steroidal anti-inflammatories (NSAID); Z20.828 Contact with and (suspected) exposure to other viral communicable diseases
CPT/HCPCS: 00944; 58552; 36415; 81025; 82962; 83036; 83735; 85025; 85027; 86850; 86900; 86901; 87426; 88307; 94762; 96374; 96376; 99218; C9803; J7120; A4216; G0378; G0379; J2405

== ENCOUNTER → 2020-02-22 17:06 | Outpatient (CLI) | payer BC, SELFPAY ==
[2020-01-31 15:15] VITALS: BMI 39.6
--- NOTE | 2020-02-22 17:12 | MRI_ITS ---
STUDY: MRI LUMBAR SPINE WITHOUT CONTRAST REASON FOR EXAM: Female, 44 years old. LBP -- pain neck, mid and lower back for years, hx transverse myelitis 2013, prev lumbar surgery 2013 TECHNIQUE: Standardized fat and water weighted pulse sequences were obtained in the sagittal and axial planes. COMPARISON: 03/29/2014 FINDINGS: T12-L1: Normal endplates. Normal disc height, hydration and morphology. Normal bilateral facet joints. Normal central canal and bilateral lateral recesses. Normal bilateral intervertebral neural foramina. Normal lumbar lordosis. There is no substantial scoliosis. Normal conus medullaris that terminates at L1 L1-2: Normal endplates. Normal disc height, hydration and morphology. Normal bilateral facet joints. Normal central canal and bilateral lateral recesses. Normal bilateral intervertebral neural foramina. L2-3: Normal endplates. Normal disc height, hydration and morphology. Normal bilateral facet joints. Normal central canal and bilateral lateral recesses. Normal bilateral intervertebral neural foramina. L3-4: Normal endplates. Normal disc height, hydration and minimal annular bulge.. Normal bilateral facet joints. Normal central canal and bilateral lateral recesses. Normal bilateral intervertebral neural foramina. L4-5: Normal endplates. Normal disc height, hydration and minimal annular bulge.. Mild bilateral facet arthropathy and thickening of ligamenta flava.. Normal central canal and bilateral lateral recesses. Mild bilateral neuroforaminal encroachment. L5-S1: Postop change status post left laminectomy and bilateral posterior fusion. No focal disc protrusion. Bilateral facet arthropathy. Normal central canal bilateral recesses and neural foramina.. Normal visualized sacral ala. Normal visualized paraspinous soft tissue structures. No significant change since prior study MRI/Spine Lumbar (Routine) IMPRESSION: Postsurgical changes at L5-S1. Mild spinal stenosis at L4-5 secondary to minimal annular bulge and facet arthropathy. Minimal annular bulge at L3-4 without spinal stenosis Electronically Signed: Michael Prather MD at 18:57 EST , Service support ,
--- NOTE | 2020-02-22 17:12 | MRI_ITS ---
STUDY: MRI THORACIC SPINE WITHOUT CONTRAST REASON FOR EXAM: Female, 44 years old. Transverse myelitis -- pain neck, mid and lower back for years, hx transverse myelitis 2013, prev lumbar surgery 2013 TECHNIQUE: Standardized fat and water weighted pulse sequences were obtained in the sagittal and axial planes. COMPARISON: 04/04/2014 FINDINGS: Normal kyphosis of the thoracic spine. There is no substantial scoliosis. No evidence for acute fracture or subluxation. There are interosseous hemangiomata or fatty deposits within the T10, T9, T8, and T5 vertebral bodies. No evidence for intramedullary bone marrow edema, inflammatory changes or tumor.. T1-2, T2-3, T3-4, T4-5, T5-6, T6-7, T7-8, T8-9, T9-10, T10-11, T11-12: Normal endplates. Normal disc hydration, heights and morphology of the corresponding intervertebral discs. Normal central canal and intervertebral neural foramina at the corresponding levels. There is a focal area of increased signal intensity within the central cord at T4-5 demonstrated on the STIR imaging sequence only which is nonspecific in etiology but may be consistent with transverse myelitis. Normal conus medullaris that terminates at L1 The soft tissue structures are unremarkable. The lesion in the cord is not clearly visualized on prior study but has decreased in size since the exam in July 2013 MRI/Spine Thoracic (Routine) IMPRESSION: No evidence for acute fracture or other significant bony pathology.. No significant disc protrusion spinal stenosis or cord compression. There is a small focus of increased signal intensity within the thoracic cord at T4-5 which has decreased in size since prior study and is only seen on the STIR imaging sequence at this time possibly representing recurrent transverse myelitis or other nonspecific demyelination.. Would recommend limited repeat study with contrast for further assessment Electronically Signed: Michael Prather MD at 18:53 EST , Service support ,
== END ==
PROVIDERS: PCP Internal Medicine; Referring Provider Anesthesiology Pain Medicine; Visit Provider Anesthesiology Pain Medicine
DX: M96.1 Postlaminectomy syndrome, not elsewhere classified (principal)
CPT/HCPCS: 72146; 72148

== ENCOUNTER → 2020-05-17 17:48 | Outpatient (CLI) | payer BC, SELFPAY ==
[2020-03-01 08:10] VITALS: BMI 40.3
--- NOTE | 2020-05-17 17:51 | MRI_ITS ---
STUDY: MRI CERVICAL SPINE WITH AND WITHOUT CONTRAST REASON FOR EXAM: Female, 45 years old. PARASTHESIA OF LEFT ARM TECHNIQUE: Standardized fat and water weighted pulse sequences were obtained in the sagittal and axial following administration of dotarem 22ml IV. COMPARISON: 03/08/2018 FINDINGS: Normal foramen magnum and brainstem-cervical cord junction. Normal craniovertebral junction. Normal anterior atlantoaxial articulation. Normal odontoid process. Normal cervical lordosis. Normal vertebral bodies and posterior osseous elements. C2-3: Normal endplates. Normal disc height, signal and morphology. Normal central canal and intervertebral neural foramina. C3-4: Normal endplates. Normal disc height, signal and morphology. Normal central canal and intervertebral neural foramina. C4-5: No change in the mild broad disc osteophyte complex which produces mild spinal stenosis and mild bilateral neural foraminal stenosis. C5-6: No change in the mild broad disc osteophyte complex which produces mild spinal stenosis but no neural foraminal stenosis. C6-7: Small central disc protrusion produces mild spinal stenosis and no neural foraminal stenosis. C7-T1: Normal endplates. Normal disc height, signal and morphology. Normal central canal and intervertebral neural foramina. Normal cervical cord. Normal visualized soft tissue structures. MRI/Spine Cervical W/WO Contrast IMPRESSION: No change from 03/08/2018. Electronically Signed: Farhat Houser MD at 12:51 EDT Tel , Service support ,
== END ==
LOC: MRI 17:49
PROVIDERS: PCP Internal Medicine; Referring Provider Internal Medicine; Visit Provider Internal Medicine
DX: R20.2 Paresthesia of skin (principal)
CPT/HCPCS: 72156; A9575

== ENCOUNTER → 2020-06-04 08:06 | Outpatient (CLI) | payer BC, SELFPAY ==
[2020-03-01 08:10] VITALS: BMI 40.3
--- NOTE | 2020-06-04 08:10 | US_ITS ---
STUDY: THYROID ULTRASOUND REASON FOR EXAM: Female, 45 years old. THYROID NODULE TECHNIQUE: Ultrasound evaluation of the thyroid was performed with real-time and static kent-scale imaging. COMPARISON: 08/31/2018 FINDINGS: RIGHT LOBE: Status post right lobectomy. LEFT LOBE: The left lobe of the thyroid gland measures 5.9 x 2.1 x 2.1 cm. There is a homogeneous echotexture. Nodule 1: No change in a 7 x 3 x 6 mm solid hypoechoic wider than tall smoothly marginated nodule with no echogenic foci (TR 4) in the anterior left lobe consistent with an adenoma. Nodule 2: No change in the 16 x 18 x 13 mm solid hypoechoic wider than tall smoothly marginated nodule with no echogenic foci (TR 4) in the mid left lobe for which ultrasound-guided biopsy is recommended if never performed. Nodule 3: No change in the 5 x 5 x 4 mm cystic anechoic wider than tall smoothly marginated nodule with no echogenic foci (TR 1) in the lateral left lobe consistent with a colloid cyst. ISTHMUS: The isthmus measures 4 mm thick. . The regional lymph nodes are normal. US/Thyroid IMPRESSION: 1. Status post right lobectomy. 2. No change in dominant solid nodule the left lobe for which ultrasound-guided biopsy is recommended if never performed. Follow-up ultrasound is recommended in one year. Electronically Signed: Farhat Houser MD at 9:42 EDT Tel , Service support ,
--- NOTE | 2020-06-04 08:14 | US_ITS ---
STUDY: ABDOMINAL ULTRASOUND - RIGHT UPPER QUADRANT REASON FOR VISIT: Female, 45 years old FATTY LIVER TECHNIQUE: Ultrasound evaluation of the right upper quadrant was performed with real-time and static kent-scale imaging. TECHNICAL QUALITY: Adequate. COMPARISON: None. FINDINGS: Liver: The liver measures 17.4 cm. There is increased echogenicity consistent with fatty infiltration. The bile ducts are within normal limits. There is hepatic color flow. The direction of portal flow is hepatopetal. There is no demonstrated mass lesion. Gallbladder: The patient is status post cholecystectomy. s. Common Bile Duct (C.B.D.): The common bile duct measures 4 mm. Pancreas: Normal size of the head, body and tail of the pancreas. There is normal echogenicity of the pancreas. There is no demonstrated pancreatic mass or cyst. Right Kidney: Normal size of the right kidney. The right kidney measures 11.4 cm. Normal renal cortex. The right cortex measures 2.3 cm. There is no demonstrated renal mass or cyst. There is no right hydronephrosis. US/Liver IMPRESSION: Status post cholecystectomy with fatty infiltration of the liver. Electronically Signed: Farhat Houser MD at 9:44 EDT Tel , Service support ,
== END ==
PROVIDERS: PCP Internal Medicine; Referring Provider Internal Medicine; Visit Provider Internal Medicine
DX: E04.1 Nontoxic single thyroid nodule (principal); K76.0 Fatty (change of) liver, not elsewhere classified
CPT/HCPCS: 76536; 76705

== ENCOUNTER → 2020-09-10 09:49 | Outpatient (CLI) | payer BC, SELFPAY ==
[2020-09-06 09:04] VITALS: BMI 38.0
[2020-09-10 10:40] LABS: Absolute Lymphocyte Count 2.93 X10^3/uL (0.83-4.51); Absolute Neutrophil Count 3.3 X10^3/uL (2.0-7.7); Basophil# 0.03 X10^3/uL; Basophil% 0.4 % (0-1); Eosinophil# 0.11 X10^3/uL; Eosinophils% 1.6 % (0-5); Hematocrit 40.6 % (37-47); Hemoglobin 13.6 g/dL (12.0-15.0); Lymphocyte # 2.93 X10^3/ul (0.83-4.51); Lymphocyte % 42.8 % (19-41); Mean Corp Hgb Conc 33.5 g/dL (32-36); Mean Corpuscular Hgb 31.4 pg (27.0-32.0); Mean Corpuscular Volume 93.8 fL (81-99); Mean Platelet Vol. 10.2 fl (6.2-12.0); Monocyte# 0.42 X10^3/uL; Monocyte% 6.1 % (0-10); NRBC Flagged by Analyzer 0 % (0-5); Neutrophil # 3.34 X10^3/uL (2.7-7.7); Platelet Count 282 K/mm3 (150-450); RBC Distribution Width CV 12.4 % (11.6-14.6); RBC Distribution Width SD 43.1 fl (35.1-43.9); Red Blood Count 4.33 M/mm3 (4.2-5.4); White Blood Count 6.8 K/mm3 (4.4-11.0)
[2020-09-10 11:03] LABS: Hemoglobin A1c 6.5 % (3.8-5.6)
[2020-09-10 11:23] LABS: Vitamin B12 333 pg/mL (211-911); Vitamin D,25 Hydroxy 48.5 ng/mL
[2020-09-10 11:38] LABS: ALB/GLOB Ratio 0.9 RATIO (0.9-2.4); AST(SGOT) 28 U/L (15-37); Alanine Aminotransfer ALT/SGPT 57 U/L (13-56); Albumin, Serum 3.3 g/dL (3.2-5.0); Alkaline Phosphatase 101 U/L (45-117); Anion Gap 6 (5-15); BUN 15 mg/dL (7-18); BUN/Creat Ratio 21.5 RATIO (10-20); Calcium,Total 8.7 mg/dL (8.5-10.1); Chloride 106 mmol/L (98-107); Cholesterol 188 mg/dL (200); EST Glomerular Filtration Rate 96 mL/min (>60); Est Glom Filt Rate - Afr Amer 116 mL/min (>60); Ferritin 65 ng/mL (8-252); Globulin 3.8 g/dL (2.2-4.2); Glucose 122 mg/dL (74-106); High Density Lipoprotein 69 mg/dL; Iron 88 ug/dL (50-170); Potassium 3.8 mmol/L (3.5-5.1); Protein, Total 7.1 g/dL (6.4-8.2); Sodium Level 138 mmol/L (136-145); Thyroid Stim Hormone (TSH) 0.46 uIU/mL (0.358-3.74); Triglycerides 84 mg/dL; Very Low Density Lipoprotein 17 mg/dL (5-40)
[2020-09-12 14:10] LABS: Vitamin D 1,25-Dihydroxy 42.4 pg/mL (19.9-79.3)
[2020-09-12 15:17] LABS: ANTINUCLEAR ANTIBODIES DIRECT Negative (Negative)
[2020-09-14 10:48] LABS: Vitamin B1, Thiamine 91.4 nmol/L (66.5-200.0)
== END ==
PROVIDERS: Psychiatry & Neurology Neurology; PCP Internal Medicine; Visit Provider Internal Medicine
DX: E55.9 Vitamin D deficiency, unspecified (principal); E11.9 Type 2 diabetes mellitus without complications; G37.3 Acute transverse myelitis in demyelinating disease of central nervous system; R53.83 Other fatigue; Z86.2 Personal history of diseases of the blood and blood-forming organs and certain disorders involving the immune mechanism
CPT/HCPCS: 36415; 80053; 80061; 82306; 82607; 82652; 82728; 82746; 83036; 83540; 84425; 84443; 85025; 86038; 86225; 86235

== ENCOUNTER 2020-10-29 16:05 | Outpatient (CLI) | payer BC, SELFPAY ==
[2020-10-29] MEDS: 0.9% Saline Lock 10 ML Syringe IV (16:23)
[2020-10-29 16:29] VITALS: BP 122/86; PULSE 95; RESP 16; TEMP 36.9; O2SAT 95; BMI 39.5
[2020-10-29 17:00] VITALS: BP 130/89; PULSE 92; RESP 16; TEMP 36.8; O2SAT 98
[2020-10-29 18:00] VITALS: BP 130/89; PULSE 90; RESP 16; TEMP 37; O2SAT 98
== END 2020-10-29 18:00 | disposition home or self-care (01) ==
LOC: ICUOUT 16:08 → MS2 16:09
PROVIDERS: PCP Internal Medicine; Referring Provider Nurse Practitioner Acute Care; Visit Provider Nurse Practitioner Acute Care
DX: Z23 Encounter for immunization (principal); U07.1 COVID-19
CPT/HCPCS: J7050; M0243; A4216; Q0244

== ENCOUNTER → 2020-11-21 13:57 | Outpatient (CLI) | payer BC, SELFPAY ==
--- NOTE | 2020-11-21 14:03 | CT_ITS ---
STUDY: CTA CHEST REASON FOR EXAM: Female, 45 years old. SOB RADIATION DOSAGE (If Supplied By Facility): CTDIvol = ( 12.66 ) mGy, DLP = ( 479.59 ) mGycm TECHNIQUE: The examination was performed with the intravenous administration of IV 100mL Isovue-370. Post-processing of the angiographic images was performed, with multiplanar reformation and 3D reconstruction. Individualized dose optimization techniques were used for this CT. COMPARISON: None. FINDINGS: There are very mild patchy bilateral groundglass opacities. There are no pleural effusions. There is no pneumothorax. There is no pulmonary embolus. There is no thoracic aortic aneurysm or dissection. The heart and pericardium are within normal limits. Images through the upper abdomen demonstrate fatty infiltration of the liver. There are no destructive osseous lesions. CT/CTA Chest W/WO Contrast IMPRESSION: No pulmonary embolus. No thoracic aortic aneurysm or dissection. Very mild patchy bilateral groundglass opacities, consistent with very mild COVID infection. Fatty liver. Electronically Signed: Theodore Jett MD at 15:07 EDT Tel , Service support ,
== END ==
PROVIDERS: PCP Internal Medicine; Referring Provider Internal Medicine; Visit Provider Internal Medicine
DX: R06.02 Shortness of breath (principal)
CPT/HCPCS: 71275; Q9967

== ENCOUNTER → 2021-02-05 14:04 | Outpatient (CLI) | payer BC, SELFPAY | PROVIDERS: PCP Internal Medicine; Referring Provider Psychiatry & Neurology Neurology; Visit Provider Psychiatry & Neurology Neurology | DX: G37.3 Acute transverse myelitis in demyelinating disease of central nervous system (principal) | CPT/HCPCS: 36415 ==

== ENCOUNTER → 2021-02-19 13:59 | Outpatient (CLI) | payer BC, SELFPAY ==
--- NOTE | 2021-02-19 14:02 | BI_ITS ---
MAMMOGRAPHY - BILATERAL SCREENING 3-D TOMOSYNTHESIS REASON FOR EXAM: Female, 45 years old. SCREENING PERTINENT HISTORY: No significant family history. TECHNIQUE: 2-D mammograms and 3-D Tomosynthesis of the breast (s) were performed. CAD was performed. COMPARISON: 12/22/2019 FINDINGS: The breast composition is composed of scattered fibroglandular density. Scattered benign calcifications are seen. No dense spiculated masses or suspicious microcalcifications are identified. No architectural distortion is identified. There is no skin thickening or retraction. There has been no significant change since the prior study. BI/SCRN MAMM (CAD)W/ZANDER BILAT IMPRESSION: No mammographic signs of malignancy. Routine yearly mammograms recommended. ASSESSMENT CATEGORY: BIRADS Category 1: Negative. A letter regarding these results will be sent to the patient by the facility within 30 days. FOLLOW UP RECOMMENDATION: Yearly follow up mammogram recommended. (A) Approximately 10% of breast cancers are not detected by mammography. A normal mammogram should not delay biopsy of a clinically suspicious abnormality. Electronically Signed: Farhat Houser MD at 15:33 EST Tel , Service support ,
--- NOTE | 2021-02-19 14:07 | BD_ITS ---
STUDY: DUAL ENERGY X-RAY ABSORPTIOMETRY / DXA REASON FOR EXAM: Female, 45 years old. [id number] TECHNIQUE: Bone Mineral Density (BMD) measurements of lumbar spine and bilateral hips were obtained. COMPARISON: None. FINDINGS: Lumbar Spine (L1-L4): g/cm2 (1.108) / T-score (0.8) / Z-score (1.3) Findings are suggestive of normal bone density with a low fracture risk. Left Femur Total: g/cm2 (1.055) / T-score (0.9) / Z-score (1.3) Left Femoral Neck: g/cm2 (0.791) / T-score (-0.5) / Z-score (0.0) Right Femur Total: g/cm2 (1.006) / T-score (0.5) / Z-score (0.9) Right Femoral Neck: g/cm2 (0.793) / T-score (-0.5) / Z-score (0.0) BD/Dexa Bone Density Study IMPRESSION: The patient is considered normal as outlined below according to World Vini Organization (WHO) criteria with a low fracture risk. Reference Information: The T-score is the number of standard deviations above or below the standard which is normal for young adults at their peak bone mineral density. The World Health Organization (WHO) interprets the T-scores as follows: Above -1 Normal bone density Between -1 and -2.5 Osteopenia Equal to / or below -2.5 Osteoporosis As a practical clinical guideline, osteopenia may be graded as follows: Mild -1 through -1.5 Moderate -1.6 through -2.0 Severe -2.1 through -2.4 The Z-score is the number of standard deviations above or below age-matched controls. A Z-score of less than -1.5 would be considered abnormal. References: 1. NIH Osteoporosis and Related Bone Diseases www osteo.org 2. International Society for Clinical Densitometry www iscd.org 3. National Osteoporosis Foundation www nof.org Electronically Signed: Alec Jiménez MD at 15:10 EST , Service support ,
== END ==
PROVIDERS: PCP Internal Medicine; Referring Provider Internal Medicine; Visit Provider Internal Medicine
DX: Z12.31 Encounter for screening mammogram for malignant neoplasm of breast (principal); Z78.0 Asymptomatic menopausal state
CPT/HCPCS: 77063; 77067; 77080

== ENCOUNTER 2021-05-17 10:17 | Outpatient (CLI) | payer BC, SELFPAY ==
--- NOTE | 2021-05-17 10:18 | MRI_ITS ---
STUDY: MRI BRAIN WITH AND WITHOUT CONTRAST REASON FOR EXAM: Female, 46 years old. multiple sclerosis TECHNIQUE: Standardized multiplanar fat and water weighted pulse sequences were obtained. IV Yes YES was administered for the contrast portion of the examination. COMPARISON: 08/04/2013 FINDINGS: Normal size of the ventricles and extra-axial spaces for the patient''s age. Normal white matter tracts of the supratentorial brain. There is no evidence for recent intracranial ischemia or other cause of cytotoxic edema on diffusion weighted imaging (DWI). Normal T2* images of the brain without demonstrated susceptibility artifact. There is no demonstrated hemosiderin stain. Normal bilateral basal ganglia. Normal thalami. There is no extra-axial fluid accumulation. Normal flow voids within the major intracranial circulation suggesting patency by spin echo criteria. Normal venous enhancement. There is no enhancing intra-axial or extra-axial abnormality. Normal sella turcica, pituitary gland, infundibular stalk, optic chiasm and hypothalamus. Normal tectal plate and pineal gland. Normal midbrain, britni and medulla. There is a retrocerebellar CSF fluid collection, without a mass effect upon the vermis, consistent with a ana-cisterna magna. Normal basal cisterns. Normal bilateral temporal bones. Normal bilateral internal auditory canals. No demonstrated orbital abnormality, within the constraints of a routine brain study. Normal visualized paranasal sinuses. Normal calvarium and skull base. Normal visualized soft tissue structures. Normal visualized upper cervical spine. MRI/Brain W/WO Contrast IMPRESSION: Normal unenhanced and enhanced MRI of the brain. Electronically Signed: Farhat Houser MD at 12:51 EDT ,
--- NOTE | 2021-05-17 10:36 | MRI_ITS ---
STUDY: MRI LUMBAR SPINE WITH AND WITHOUT CONTRAST REASON FOR EXAM: Female, 46 years old. RIGHT FOOT DROP TECHNIQUE: Standardized fat and water weighted pulse sequences were obtained in the sagittal and axial planes. 22cc iv dotarem was administered for the contrast portion of the examination. COMPARISON: 02/22/2020 FINDINGS: T12-L1: Normal endplates. Normal disc height, hydration and morphology. Normal bilateral facet joints. Normal central canal and bilateral lateral recesses. Normal bilateral intervertebral neural foramina. Normal lumbar lordosis. There is no substantial scoliosis. Normal conus medullaris that terminates at the L2. L1-2: Normal endplates. Normal disc height, hydration and morphology. Normal bilateral facet joints. Normal central canal and bilateral lateral recesses. Normal bilateral intervertebral neural foramina. L2-3: Normal endplates. Normal disc height, hydration and morphology. Normal bilateral facet joints. Normal central canal and bilateral lateral recesses. Normal bilateral intervertebral neural foramina. L3-4: Normal endplates. Normal disc height, hydration and morphology. Normal bilateral facet joints. Normal central canal and bilateral lateral recesses. Normal bilateral intervertebral neural foramina. L4-5: Normal endplates. Normal disc height, hydration and morphology. Normal bilateral facet joints. Normal central canal and bilateral lateral recesses. Normal bilateral intervertebral neural foramina. L5-S1: Status post discectomy, interbody fusion and transpedicular fixation with bony bridging with anatomic alignment and no spinal stenosis or neural foraminal stenosis. Normal visualized sacral ala. Normal visualized paraspinous soft tissue structures. There is no demonstrated abnormal enhancement. MRI/Spine Lumbar W/WO Contrast IMPRESSION: No change from 02/22/2020. Electronically Signed: Farhat Houser MD at 13:13 EDT ,
[2021-05-17 10:45] LABS: CREATININE FINGERSTICK < 0.6 mg/dL (0.55-1.02); EGFR FINGERSTICK > 60.0000 mL/min (>60)
== END 2021-05-17 23:59 | disposition home or self-care (01) ==
LOC: MRI 10:18
PROVIDERS: PCP Internal Medicine; Referring Provider Psychiatry & Neurology Neurology; Visit Provider Psychiatry & Neurology Neurology
DX: G35 Multiple sclerosis (principal); M21.371 Foot drop, right foot
CPT/HCPCS: 70553; 72158; A9575

== ENCOUNTER → 2021-11-01 | Outpatient (CLI) | payer BC, SELFPAY ==
--- NOTE | 2021-11-01 08:57 | US_ITS ---
STUDY: THYROID ULTRASOUND REASON FOR EXAM: Female, 46 years old. NODULE TECHNIQUE: Ultrasound evaluation of the thyroid was performed with real-time and static kent-scale imaging. COMPARISON: June 04, 2020 ultrasound thyroid FINDINGS: RIGHT LOBE: Right thyroid gland is been removed. LEFT LOBE: The left lobe of the thyroid gland measures 2.6 x 2.2 x 2.0 cm. There is a heterogeneous echotexture. There is a hypoechoic nodule measuring 8 x 7 x 3 mm. There is a hypoechoic/heterogeneous nodule measuring 1.7 x 1.6 x 1.3 cm. There is minimal peripheral vascular flow. There is a cystic structure measuring 7 x 5 x 4 mm. ISTHMUS: The isthmus measures millimeters. . The regional lymph nodes are normal. US/Thyroid IMPRESSION: Stable dominant nodule left thyroid. Recommend continued annual follow-up. Stable appearing small nodules as detailed above. Status post right thyroidectomy. Electronically Signed: Sonal Feliciano MD at 5:48 EDT ,
--- NOTE | 2021-11-01 08:57 | US_ITS ---
STUDY: ABDOMINAL ULTRASOUND - RIGHT UPPER QUADRANT REASON FOR VISIT: Female, 46 years old FATTY LIVER TECHNIQUE: Ultrasound evaluation of the right upper quadrant was performed with real-time and static kent-scale imaging. TECHNICAL QUALITY: Adequate. COMPARISON: Comparison is made with prior study of 06/04/2020. FINDINGS: Liver: The liver is mildly enlarged and measures 17.3 cm. There is increased echogenicity consistent with fatty infiltration. The bile ducts are within normal limits. There is hepatic color flow. The direction of portal flow is hepatopetal. There is no demonstrated mass lesion. Gallbladder: The patient is status post cholecystectomy. Common Bile Duct (C.B.D.): The common bile duct measures 2.5 mm. Pancreas: Normal size of the head, body and tail of the pancreas. There is increased echogenicity of the pancreas. There is no demonstrated pancreatic mass or cyst. Right Kidney: Normal size of the right kidney. The right kidney measures 11.3 cm x 6.1 cm x 4.8 cm. Normal renal cortex. The right cortex measures 1.7 cm. There is no demonstrated renal mass or cyst. There is no right hydronephrosis. US/Liver IMPRESSION: Mild hepatomegaly and fatty infiltration of the liver. Electronically Signed: Alec Jiménez MD at 11:32 EDT ,
== END | disposition home or self-care (01) ==
LOC: US 08:55
PROVIDERS: PCP Internal Medicine; Referring Provider Internal Medicine; Visit Provider Internal Medicine
DX: E04.1 Nontoxic single thyroid nodule (principal); K76.0 Fatty (change of) liver, not elsewhere classified
CPT/HCPCS: 76536; 76705

== ENCOUNTER → 2022-01-10 | Outpatient (CLI) | payer BC, SELFPAY ==
--- NOTE | 2022-01-10 09:07 | US_ITS ---
STUDY: ABDOMINAL ULTRASOUND - ELASTOGRAPHY REASON FOR VISIT: Female, 46 years old. Fatty infiltration of the liver. TECHNIQUE: Liver stiffness measurements were obtained on a [employer] RS 85 ultrasound machine using a CA 1-7 probe following the SRU guidelines. 3 measurements were obtained using a 2-D-SWE method. The IQR/M was 11% suggesting a quality data set. TECHNICAL QUALITY: Adequate. COMPARISON: Comparison is made with prior study 11/01/2021. FINDINGS: Liver: Fatty infiltration of the liver and hepatomegaly. Median liver stiffness measured 10.5 kPa. US/Elastography Parenchyma/Organ IMPRESSION: Liver stiffness measures 10.5 kPa compatible with F2-F3 (Mild to moderate liver fibrosis) Metavir score. Electronically Signed: Alec Jiménez MD at 13:53 EST ,
== END | disposition home or self-care (01) ==
LOC: US 09:05
PROVIDERS: PCP Internal Medicine; Referring Provider Internal Medicine; Visit Provider Internal Medicine
DX: K76.0 Fatty (change of) liver, not elsewhere classified (principal)
CPT/HCPCS: 76981

== ENCOUNTER → 2022-04-11 | Outpatient (CLI) | payer BC, SELFPAY ==
[2022-04-11 12:43] LABS: Absolute Lymphocyte Count 3.23 X10^3/uL (0.83-4.51); Absolute Neutrophil Count 4.4 X10^3/uL (2.0-7.7); Basophil# 0.03 X10^3/uL; Basophil% 0.4 % (0-1); Eosinophil# 0.07 X10^3/uL; Eosinophils% 0.9 % (0-5); Hematocrit 40.1 % (37-47); Lymphocyte # 3.23 X10^3/ul (0.83-4.51); Lymphocyte % 39.2 % (19-41); Mean Corp Hgb Conc 34.9 g/dL (32-36); Mean Corpuscular Hgb 31.9 pg (27.0-32.0); Mean Corpuscular Volume 91.3 fL (81-99); Mean Platelet Vol. 10.5 fl (6.2-12.0); Monocyte% 6.1 % (0-10); NRBC Flagged by Analyzer 0 % (0-5); Neutrophil # 4.38 X10^3/uL (2.7-7.7); Neutrophil % 53.2 % (47-70); Platelet Count 277 K/mm3 (150-450); RBC Distribution Width CV 12.9 % (11.6-14.6); Red Blood Count 4.39 M/mm3 (4.2-5.4); White Blood Count 8.2 K/mm3 (4.4-11.0)
[2022-04-11 12:45] LABS: Prothrombin Time (Protime)PT. 13.2 SECONDS (11.7-14.9)
[2022-04-11 12:54] LABS: Erythrocyte Sedimentation Rate 23 mm/hr (0-30)
[2022-04-11 12:57] LABS: ALB/GLOB Ratio 0.9 RATIO (0.9-2.4); AST(SGOT) 26 U/L (15-37); Alanine Aminotransfer ALT/SGPT 45 U/L (13-56); Albumin, Serum 3.4 g/dL (3.2-5.0); Alkaline Phosphatase 73 U/L (45-117); Anion Gap 8 (5-15); BUN 10 mg/dL (7-18); BUN/Creat Ratio 14.8 RATIO (10-20); Calcium,Total 8.8 mg/dL (8.5-10.1); Chloride 103 mmol/L (98-107); Creatinine, Serum 0.67 mg/dL (0.55-1.02); EST Glomerular Filtration Rate 99 mL/min (>60); Est Glom Filt Rate - Afr Amer 120 mL/min (>60); Ferritin 78 ng/mL (8-252); Globulin 3.7 g/dL (2.2-4.2); Glucose 149 mg/dL (74-106); LDH 136 U/L (84-246); Potassium 3.6 mmol/L (3.5-5.1); Protein, Total 7.1 g/dL (6.4-8.2); Sodium Level 136 mmol/L (136-145)
[2022-04-11 13:23] LABS: HIV - WCH Non-Reactive (Nonreactive)
[2022-04-11 14:21] LABS: Hemoglobin A1c 8.8 % (3.8-5.6)
[2022-04-14 15:07] LABS: Anti-Centromere B Ab <0.2 AI (0.0-0.9); Anti-Chromatin <0.2 AI (0.0-0.9); Anti-Jo <0.2 AI (0.0-0.9); Anti-Scleroderma-70 AB <0.2 AI (0.0-0.9); RNP Ab <0.2 AI (0.0-0.9); SJOGREN'S Anti-SS-A test < 0.2 AI (0.0-0.9); SJOGREN'S Anti-SS-B test < 0.2 AI (0.0-0.9); Smith Ab <0.2 AI (0.0-0.9)
[2022-04-14 19:21] LABS: Anti-Mitochondrial AB <20.0 Units (0.0-20.0); Anti-dsDNA Ab 1 IU/mL (0-9)
[2022-04-20 06:55] LABS: Angiotensin Convert Enzyme 53 U/L (14-82); Ceruloplasmin 23.9 mg/dL (19.0-39.0); Cytoplasmic Ab (C-ANCA) <1:20 titer (Neg:<1:20); HEPATITIS B SURFACE AG Negative (Negative); Hep C Antibodies Non Reactive (Non Reactive); Hepatitis A IgM Antibody Negative (Negative); Hepatitis B Core AB IgM Negative (Negative); Intrinsic Factor Ab 1.1 AU/mL (0.0-1.1)
[2022-04-20 09:12] LABS: AFP, Tumor Marker < 1.8 ng/mL (0.0-6.4); Anti-Parietal Cell AB, QN 9.6 Units (0.0-20.0); Anti-Smooth Muscle ABS 5 Units (0-19); Copper, Serum or Plasma 111 ug/dL (80-158); Haptoglobin 161 mg/dL (42-296); Perinuclear Ab (P-ANCA) <1:20 titer (Neg:<1:20)
== END | disposition home or self-care (01) ==
LOC: LAB 11:33
PROVIDERS: PCP Internal Medicine; Referring Provider Internal Medicine Gastroenterology; Visit Provider Internal Medicine Gastroenterology
DX: K76.0 Fatty (change of) liver, not elsewhere classified (principal)
CPT/HCPCS: 36415; 80053; 80074; 82105; 82140; 82164; 82390; 82525; 82728; 83010; 83036; 83516; 83615; 85025; 85610; 85652; 86140; 86225; 86235; 86256; 86340; 86703

== ENCOUNTER → 2022-06-10 | Outpatient (CLI) | payer BC, SELFPAY ==
--- NOTE | 2022-06-10 14:20 | BI_ITS ---
MAMMOGRAPHY - BILATERAL SCREENING REASON FOR EXAM: Female, 47 years old. Routine annual screening examination. PERTINENT HISTORY: Aunt with breast cancer. TECHNIQUE: Digital bilateral breast zander (3D mammographic acquisition) in the CC and MLO projections. 2-D mediolateral oblique (MLO) and craniocaudad (CC) views of both breasts were obtained. CAD: Full Field Digital Mammography with Computer Added Detection was performed. COMPARISON: Comparison is made with prior study dated February 19, 2021 and December 22, 2019. FINDINGS: Breast Composition: The breasts are almost entirely fatty. There are no dominant masses or suspicious calcifications. No other significant abnormalities are identified. There has been no significant change since the prior study. BI/SCRN MAMM (CAD)W/ZANDER BILAT IMPRESSION: Stable bilateral screening mammogram. Yearly follow-up mammogram recommended. (A) ASSESSMENT CATEGORY: BIRADS Category 1: Negative. A letter regarding these results will be sent to the patient by the facility within 30 days. Approximately 10% of breast cancers are not detected by mammography. A normal mammogram should not delay biopsy of a clinically suspicious abnormality. [id number] Electronically Signed: Alec Jiménez MD at 15:08 EDT ,
== END | disposition home or self-care (01) ==
PROVIDERS: PCP Internal Medicine; Referring Provider Internal Medicine; Visit Provider Internal Medicine
DX: Z12.31 Encounter for screening mammogram for malignant neoplasm of breast (principal)
CPT/HCPCS: 77063; 77067

== ENCOUNTER → 2022-08-25 | Outpatient (CLI) | payer BC, SELFPAY ==
--- NOTE | 2022-08-25 07:44 | US_ITS ---
STUDY: ABDOMINAL ULTRASOUND - ELASTOGRAPHY REASON FOR VISIT: Female, 47 years old. Fatty infiltration of the liver. TECHNIQUE: Liver stiffness measurements were obtained on a [employer] RS 85 ultrasound machine using a CA 1-7 probe following the SRU guidelines. 3 measurements were obtained using a 2-D-SWE method. TheIQR/M was 22% suggesting a quality data set. TECHNICAL QUALITY: Adequate. COMPARISON: Comparison is made with prior study dated January 10, 2022. FINDINGS: Liver: There is no demonstrated mass lesion. Median liver stiffness measured 8.2 kPa. Abdomen: There is no demonstrated mass lesion. US/Elastography Parenchyma/Organ IMPRESSION: Liver stiffness measures 8.2 kPa compatible with F2-F3 (Mild to moderate liver fibrosis) Metavir score. Electronically Signed: Alec Jiménez MD at 15:24 EDT ,
--- NOTE | 2022-08-25 07:44 | US_ITS ---
STUDY: ABDOMINAL ULTRASOUND - RIGHT UPPER QUADRANT REASON FOR VISIT: Female, 47 years old . Fatty infiltration of the liver. TECHNIQUE: Ultrasound evaluation of the right upper quadrant was performed with real-time and static kent-scale imaging. TECHNICAL QUALITY: Adequate. COMPARISON: Comparison is made with prior study November 01, 2021. FINDINGS: Liver: The liver is mildly enlarged and measures 17.9 cm. There is increased echogenicity consistent with fatty infiltration. The bile ducts are within normal limits. There is hepatic color flow. The direction of portal flow is hepatopetal. There is no demonstrated mass lesion. Gallbladder: The patient is status post cholecystectomy. Common Bile Duct (C.B.D.): The common bile duct measures 3.6 mm. Pancreas: Normal size of the head, body and tail of the pancreas. There is increased echogenicity of the pancreas. There is no demonstrated pancreatic mass or cyst. Right Kidney: Normal size of the right kidney. The right kidney measures 10.8 cm x 6.1 cm x 5 cm. Normal renal cortex. The right cortex measures 1.7 cm. There is no demonstrated renal mass or cyst. There is no right hydronephrosis. US/Abdomen Limited IMPRESSION: Mild hepatomegaly and fatty infiltration of the liver. Electronically Signed: Alec Jiménez MD at 15:25 EDT ,
== END | disposition home or self-care (01) ==
LOC: US 07:44
PROVIDERS: PCP Internal Medicine; Referring Provider Internal Medicine Gastroenterology; Visit Provider Internal Medicine Gastroenterology
DX: K76.0 Fatty (change of) liver, not elsewhere classified (principal)
CPT/HCPCS: 76705; 76981

== ENCOUNTER → 2023-01-26 | Outpatient (CLI) | payer BC, SELFPAY ==
[2023-01-26 10:40] LABS: Calcium,Total 9.1 mg/dL (8.5-10.1)
== END | disposition home or self-care (01) ==
LOC: LABSPEC 10:17
PROVIDERS: PCP Internal Medicine; Referring Provider Internal Medicine; Visit Provider Internal Medicine
DX: E34.9 Endocrine disorder, unspecified (principal)
CPT/HCPCS: 82310

== ENCOUNTER → 2023-05-13 | Outpatient (CLI) | payer BC, SELFPAY ==
[2023-05-13 10:28] LABS: Hematocrit 38.1 % (37-47); Hemoglobin 12.9 g/dL (12.0-15.0); Mean Corp Hgb Conc 33.9 g/dL (32-36); Mean Corpuscular Hgb 31.2 pg (27.0-32.0); Mean Corpuscular Volume 92.3 fL (81-99); Mean Platelet Vol. 10.6 fl (6.2-12.0); Platelet Count 275 K/mm3 (150-450); RBC Distribution Width CV 13.2 % (11.6-14.6); RBC Distribution Width SD 44.8 fl (35.1-43.9); Red Blood Count 4.13 M/mm3 (4.2-5.4); White Blood Count 8.5 K/mm3 (4.4-11.0)
[2023-05-13 10:36] LABS: Erythrocyte Sedimentation Rate 22 mm/hr (0-30)
[2023-05-13 11:33] LABS: ALB/GLOB Ratio 0.9 RATIO (0.9-2.4); AST(SGOT) 18 U/L (15-37); Alanine Aminotransfer ALT/SGPT 22 U/L (13-56); Albumin, Serum 3.2 g/dL (3.2-5.0); Alkaline Phosphatase 93 U/L (45-117); Anion Gap 7 (5-15); BUN 11 mg/dL (7-18); BUN/Creat Ratio 16.4 RATIO (10-20); Calcium,Total 8.7 mg/dL (8.5-10.1); Chloride 107 mmol/L (98-107); Creatinine, Serum 0.67 mg/dL (0.55-1.02); EST Glomerular Filtration Rate 100 mL/min (>60); Est Glom Filt Rate - Afr Amer 121 mL/min (>60); Free T3 2.4 pg/mL (2.18-3.98); Globulin 3.7 g/dL (2.2-4.2); Glucose 134 mg/dL (74-106); Potassium 3.5 mmol/L (3.5-5.1); Protein, Total 6.9 g/dL (6.4-8.2); Sodium Level 138 mmol/L (136-145); T4 Free Direct 1.05 ng/dL (0.76-1.46); Thyroid Stim Hormone (TSH) 1.39 uIU/mL (0.358-3.74)
[2023-05-16 10:09] LABS: Vitamin B1, Thiamine 151.2 nmol/L (66.5-200.0)
== END | disposition home or self-care (01) ==
PROVIDERS: PCP Internal Medicine; Referring Provider Psychiatry & Neurology Neurology; Visit Provider Psychiatry & Neurology Neurology
DX: R53.83 Other fatigue (principal); E55.9 Vitamin D deficiency, unspecified; E03.9 Hypothyroidism, unspecified
CPT/HCPCS: 36415; 80053; 82140; 82652; 82746; 84425; 84439; 84443; 84481; 85027; 85652

== ENCOUNTER → 2023-05-26 | Outpatient (CLI) | payer BC, SELFPAY | END | disposition home or self-care (01) | LOC: SL 20:05 | PROVIDERS: PCP Internal Medicine; Referring Provider Psychiatry & Neurology Neurology; Visit Provider Psychiatry & Neurology Neurology | DX: G47.10 Hypersomnia, unspecified (principal) | CPT/HCPCS: 95810 ==

== ENCOUNTER → 2023-07-02 | Outpatient (CLI) | payer BC, SELFPAY | END | disposition home or self-care (01) | LOC: LABSPEC 12:59 | PROVIDERS: Referring Provider Nurse Practitioner Family; Visit Provider Nurse Practitioner Family | DX: R31.9 Hematuria, unspecified (principal) | CPT/HCPCS: 87086 ==

== ENCOUNTER → 2023-07-08 | Outpatient (CLI) | payer BC, SELFPAY ==
--- NOTE | 2023-07-08 17:47 | US_ITS ---
STUDY: ULTRASOUND OF THE FEMALE PELVIS - COMPLETE REASON FOR EXAM: Female, 48 years old. AUB/s/p hysterectomy -- please take note of bladder LMP: Status post hysterectomy. TECHNIQUE: Transabdominal and Transvaginal TECHNICAL QUALITY: Adequate. COMPARISON: 09/16/2019 FINDINGS: Status post hysterectomy. The ovaries are not visualized.. There is no fluid in the cul-de-sac. The pre void volume of the bladder was 519 ml. The post void volume of the bladder was ml. Polycystic ovary disease: No. US/Pelvic w/ Transvaginal IMPRESSION: Normal female pelvis after hysterectomy.. Electronically Signed: Farhat Houser MD at 19:38 EDT ,
== END | disposition home or self-care (01) ==
LOC: US 17:47
PROVIDERS: PCP Internal Medicine; Referring Provider Nurse Practitioner Family; Visit Provider Nurse Practitioner Family
DX: E04.1 Nontoxic single thyroid nodule (principal); N93.9 Abnormal uterine and vaginal bleeding, unspecified
CPT/HCPCS: 76830; 76856

== ENCOUNTER → 2023-08-24 | Outpatient (CLI) | payer BC, SELFPAY ==
--- NOTE | 2023-08-24 10:57 | RAD_ITS ---
STUDY: X-RAY - CERVICAL SPINE REASON FOR EXAM: Female, 48 years old. Cervical spondylosis. Pain. TECHNIQUE: 5 view(s) of the cervical spine were obtained on 6 images. COMPARISON: Cervical spine CT dated May 17, 2020 FINDINGS: Normal anterior atlantoaxial articulation. Normal odontoid process. Normal cervical lordosis. Diffuse moderate uncovertebral and facet sclerosis. Intervertebral disc space narrowing at C4-5, C5-6 and C6-7. Anterior bony neural foraminal encroachment at C4-5 and C5-6 bilaterally. The Clips projected over the lower neck. RAD/Cerv Spine 4 or 5 Views IMPRESSION: Mild lower cervical spondylosis most marked at C4-5 and C5-6 as described. No acute abnormality. Electronically Signed: Alex Garcia MD at 12:55 EDT ,
== END | disposition home or self-care (01) ==
LOC: MTRAD 10:55
PROVIDERS: PCP Internal Medicine; Referring Provider Clinical Nurse Specialist Adult Health; Visit Provider Clinical Nurse Specialist Adult Health
DX: M47.812 Spondylosis without myelopathy or radiculopathy, cervical region (principal)
CPT/HCPCS: 72050

== ENCOUNTER → 2023-11-26 | Outpatient (CLI) | payer BC, SELFPAY ==
[2023-11-26 18:01] LABS: Absolute Lymphocyte Count 3.97 X10^3/uL (0.83-4.51); Absolute Neutrophil Count 5.2 X10^3/uL (2.0-7.7); Basophil# 0.05 X10^3/uL; Basophil% 0.5 % (0-1); Eosinophil# 0.09 X10^3/uL; Eosinophils% 0.9 % (0-5); Hematocrit 41.8 % (37-47); Hemoglobin 13.9 g/dL (12.0-15.0); Lymphocyte # 3.97 X10^3/ul (0.83-4.51); Mean Corp Hgb Conc 33.3 g/dL (32-36); Mean Corpuscular Hgb 30.9 pg (27.0-32.0); Mean Corpuscular Volume 92.9 fL (81-99); Monocyte# 0.84 X10^3/uL; Monocyte% 8.3 % (0-10); NRBC Flagged by Analyzer 0 % (0-5); Neutrophil % 51.1 % (47-70); Platelet Count 300 K/mm3 (150-450); RBC Distribution Width SD 44.1 fl (35.1-43.9); White Blood Count 10.2 K/mm3 (4.4-11.0)
[2023-11-26 18:31] LABS: Hemoglobin A1c 5.6 % (3.8-5.6)
[2023-11-26 18:40] LABS: AST(SGOT) 18 U/L (15-37); Alanine Aminotransfer ALT/SGPT 29 U/L (13-56); Albumin, Serum 3.7 g/dL (3.2-5.0); Alkaline Phosphatase 90 U/L (45-117); Anion Gap 7 (5-15); BUN 12 mg/dL (7-18); BUN/Creat Ratio 15.8 RATIO (10-20); Calcium,Total 9.6 mg/dL (8.5-10.1); Chloride 103 mmol/L (98-107); Cholesterol 201 mg/dL (200); Creatinine, Serum 0.76 mg/dL (0.55-1.02); EST Glomerular Filtration Rate 86 mL/min (>60); Est Glom Filt Rate - Afr Amer 104 mL/min (>60); Globulin 3.8 g/dL (2.2-4.2); Glucose 83 mg/dL (74-106); High Density Lipoprotein 79 mg/dL; Potassium 3.8 mmol/L (3.5-5.1); Protein, Total 7.5 g/dL (6.4-8.2); Sodium Level 136 mmol/L (136-145); Triglycerides 94 mg/dL; Very Low Density Lipoprotein 19 mg/dL (5-40)
== END | disposition home or self-care (01) ==
PROVIDERS: PCP Internal Medicine; Referring Provider Physician Assistant; Visit Provider Physician Assistant
DX: E66.01 Morbid (severe) obesity due to excess calories (principal); E11.9 Type 2 diabetes mellitus without complications; Z68.39 Body mass index [BMI] 39.0-39.9, adult
CPT/HCPCS: 36415; 80053; 80061; 83036; 85025

== ENCOUNTER → 2023-12-09 | Outpatient (CLI) | payer BC, SELFPAY ==
[2023-12-09 13:29] LABS: Ferritin 58 ng/mL (8-252); Iron 133 ug/dL (50-170); Iron Binding Capacity,Total 321 ug/dL (250-450); T4 Free Direct 1.07 ng/dL (0.76-1.46); Thyroid Stim Hormone (TSH) 0.604 uIU/mL (0.358-3.740)
[2023-12-09 13:31] LABS: Internal QC Validated? YES +Cl - CLEAR BKGD; Monotest Negative (Negative); Record Kit Lot#, Mono 13241033
== END | disposition home or self-care (01) ==
LOC: BIMLAB 09:30
PROVIDERS: PCP Internal Medicine; Referring Provider Nurse Practitioner; Visit Provider Nurse Practitioner
DX: R53.82 Chronic fatigue, unspecified (principal); E04.1 Nontoxic single thyroid nodule
CPT/HCPCS: 36415; 82306; 82607; 82728; 83540; 83550; 84439; 84443; 86308

== ENCOUNTER → 2023-12-11 | Outpatient (CLI) | payer BC, SELFPAY ==
--- NOTE | 2023-12-11 12:07 | US_ITS ---
EXAM: US SOFT TISSUES HEAD AND NECK, THYROID CLINICAL INDICATION: THYROID NODULE TECHNIQUE: Mayorga scale and color doppler imaging was performed of the thyroid gland. COMPARISON: US Thyroid dated 11/01/2021 FINDINGS: LEFT THYROID LOBE: Left thyroid lobe measures 5.7 x 2.1 x 1.8 cm. A dominant central nodule within the left lobe is wider than tall, mixed cystic and solid, well-defined and without microcalcification. TI-RADS points: 2. TI-RADS category: TR2. This nodule is not suspicious and no FNA or follow-up is necessary. Homogeneous echotexture with normal vascularity. RIGHT THYROID LOBE: Right thyroid lobe is surgically absent. Homogeneous echotexture with normal vascularity. No thyroid nodules are present. ISTHMUS: Normal. No thyroid nodules are present. OTHER FINDINGS: Two additional similar lesions noted within the superior pole and lower pole measuring 9 and 7 mm in maximum diameter. US/Thyroid IMPRESSION: Stable left thyroid nodules. Surgical absence of the right thyroid lobe. Electronically Signed: Ko Hancock MD at 14:35 EDT ,
--- NOTE | 2023-12-11 12:32 | BI_ITS ---
MAMMOGRAPHY - BILATERAL SCREENING REASON FOR EXAM: Female, 48 years old. Routine annual screening examination. PERTINENT HISTORY: Aunt with breast cancer. Remote right excisional breast biopsy. TECHNIQUE: Digital bilateral breast zander (3D mammographic acquisition) in the CC and MLO projections. 2-D mediolateral oblique (MLO) and craniocaudad (CC) views of both breasts were obtained. CAD: Full Field Digital Mammography with Computer Added Detection was performed. COMPARISON: Comparison is made with prior study June 10, 2022 and February 19, 2021. FINDINGS: Breast Composition: The breasts are almost entirely fatty. There are no dominant masses or suspicious calcifications. No other significant abnormalities are identified. There has been no significant change since the prior study. BI/SCRN MAMM (CAD)W/ZANDER BILAT IMPRESSION: Stable bilateral screening mammogram. Yearly follow-up mammogram recommended. (A) ASSESSMENT CATEGORY: BIRADS Category 1: Negative. A letter regarding these results will be sent to the patient by the facility within 30 days. Approximately 10% of breast cancers are not detected by mammography. A normal mammogram should not delay biopsy of a clinically suspicious abnormality. [id number] Electronically Signed: Alec Jiménez MD at 10:28 EDT ,
== END | disposition home or self-care (01) ==
PROVIDERS: PCP Internal Medicine; Referring Provider Nurse Practitioner; Visit Provider Nurse Practitioner
DX: Z12.31 Encounter for screening mammogram for malignant neoplasm of breast (principal); E04.1 Nontoxic single thyroid nodule
CPT/HCPCS: 76536; 77063; 77067

== ENCOUNTER → 2024-06-23 | Outpatient (CLI) | payer BC, SELFPAY ==
[2024-06-23 12:12] LABS: Absolute Lymphocyte Count 3.21 X10^3/uL (0.83-4.51); Absolute Neutrophil Count 3.6 X10^3/uL (2.0-7.7); Basophil# 0.04 X10^3/uL; Basophil% 0.5 % (0-1); Eosinophil# 0.11 X10^3/uL; Eosinophils% 1.5 % (0-5); Hematocrit 38.6 % (37-47); Hemoglobin 13.4 g/dL (12.0-15.0); Lymphocyte # 3.21 X10^3/ul (0.83-4.51); Lymphocyte % 43.1 % (19-41); Mean Corp Hgb Conc 34.7 g/dL (32-36); Mean Corpuscular Hgb 32.1 pg (27.0-32.0); Mean Corpuscular Volume 92.3 fL (81-99); Mean Platelet Vol. 10.6 fl (6.2-12.0); Monocyte# 0.51 X10^3/uL; Monocyte% 6.9 % (0-10); NRBC Flagged by Analyzer 0 % (0-5); Neutrophil # 3.55 X10^3/uL (2.7-7.7); Neutrophil % 47.7 % (47-70); Platelet Count 287 K/mm3 (150-450); RBC Distribution Width CV 13.2 % (11.6-14.6); RBC Distribution Width SD 44.5 fl (35.1-43.9); Red Blood Count 4.18 M/mm3 (4.2-5.4); White Blood Count 7.4 K/mm3 (4.4-11.0)
[2024-06-23 13:58] LABS: ALB/GLOB Ratio 1.4 RATIO (0.9-2.4); AST(SGOT) 25 U/L (<=31); Alanine Aminotransfer ALT/SGPT 29 U/L (<=34); Alkaline Phosphatase 81 U/L (35-104); Anion Gap 11 (5-15); BUN 14 mg/dL (4-19); BUN/Creat Ratio 18.5 RATIO (10-20); Calcium,Total 9.7 mg/dL (7.6-11.0); Carbon Dioxide 25.7 mmol/L (21.0-32.0); Chloride 101 mmol/L (98-108); Creatinine, Serum 0.74 mg/dL (0.70-1.20); EST Glomerular Filtration Rate 98 (>60); Follicle Stimulating Hormone 5.6 mIU/mL; Globulin 2.9 g/dL (2.2-4.2); Glucose 85 mg/dL (70-99); Luteinizing Hormone 5.2 mIU/mL; Protein, Total 6.9 g/dL (5.9-8.4); Sodium Level 138 mmol/L (133-145); Thyroid Stim Hormone (TSH) 0.813 uIU/mL (0.300-4.200); Total Bilirubin 1.04 mg/dL (0.00-1.30); Vitamin B12 977 pg/mL (180-914); Vitamin D,25 Hydroxy 42.3 ng/mL (30-100)
[2024-06-28 13:08] LABS: Testosterone Free 0.3 pg/mL (0.0-4.2)
== END | disposition home or self-care (01) ==
PROVIDERS: PCP Internal Medicine; Referring Provider Nurse Practitioner Family; Visit Provider Nurse Practitioner Family
DX: N95.1 Menopausal and female climacteric states (principal); Z13.29 Encounter for screening for other suspected endocrine disorder
CPT/HCPCS: 36415; 80053; 82306; 82607; 82670; 83001; 83002; 84402; 84439; 84443; 85025

== ENCOUNTER → 2024-11-11 | Outpatient (CLI) | payer BC, SELFPAY ==
[2024-11-11 22:28] LABS: Hematocrit 39.7 % (37-47); Hemoglobin 13.5 g/dL (12.0-15.0); Immature Granulocytes Count 0.030 X10^3/uL (0.0-0.0); Mean Corp Hgb Conc 34.0 g/dL (32-36); Mean Corpuscular Volume 94.1 fL (81-99); Mean Platelet Vol. 11.0 fl (6.2-12.0); NRBC Flagged by Analyzer 0 % (0-5); Platelet Count 307 K/mm3 (150-450); RBC Distribution Width CV 13.6 % (11.6-14.6); RBC Distribution Width SD 47.0 fl (35.1-43.9); Red Blood Count 4.22 M/mm3 (4.2-5.4); White Blood Count 9.6 K/mm3 (4.4-11.0)
[2024-11-11 23:01] LABS: AST(SGOT) 26 U/L (<=31); Alanine Aminotransfer ALT/SGPT 26 U/L (<=34); Albumin, Serum 4.1 g/dL (3.5-5.0); Alkaline Phosphatase 89 U/L (35-104); Anion Gap 13 (5-15); BUN 12 mg/dL (4-19); BUN/Creat Ratio 13.9 RATIO (10-20); Calcium,Total 9.8 mg/dL (7.6-11.0); Carbon Dioxide 23.4 mmol/L (21.0-32.0); Chloride 102 mmol/L (98-108); Globulin 2.9 g/dL (2.2-4.2); Glucose 119 mg/dL (70-99); Magnesium 2.2 mg/dL (1.5-2.2); Potassium 3.7 mmol/L (3.3-5.1)
== END | disposition home or self-care (01) ==
PROVIDERS: Physician Assistant; PCP Internal Medicine; Referring Provider Internal Medicine; Visit Provider Internal Medicine
DX: R00.2 Palpitations (principal)
CPT/HCPCS: 36415; 80053; 83735; 84443; 85025

== ENCOUNTER → 2024-12-26 | Outpatient (CLI) | payer BC, SELFPAY ==
--- NOTE | 2024-12-26 09:10 | RAD_ITS ---
PROCEDURE: RAD/L/S Spine Min 4 Views
== END | disposition home or self-care (01) ==
LOC: MTRAD 09:07
PROVIDERS: PCP Internal Medicine; Referring Provider Clinical Nurse Specialist Adult Health; Visit Provider Clinical Nurse Specialist Adult Health
DX: M51.369 Other intervertebral disc degeneration, lumbar region without mention of lumbar back pain or lower extremity pain (principal)
CPT/HCPCS: 72110

== ENCOUNTER → 2025-01-04 | Outpatient (CLI) | payer BC, SELFPAY | END | disposition home or self-care (01) | PROVIDERS: PCP Internal Medicine; Referring Provider Physician Assistant; Visit Provider Physician Assistant | DX: R00.2 Palpitations (principal) | CPT/HCPCS: 93225; 93226 ==

== ENCOUNTER → 2025-01-06 | Outpatient (CLI) | payer BC, SELFPAY ==
--- NOTE | 2025-01-06 15:00 | BI_ITS ---
EXAM: SCRN MAMM (CAD)W/ZANDER BILAT DATE: 01/06/2025 CLINICAL HISTORY: F, Age 49 y/o , SCREENING TECHNIQUE: Procedure Code: [id number] Modality: MG Procedure: SCRN MAMM (CAD)W/ZANDER BILAT COMPARISON: Prior exam(s) dated 12/11/2023 and 06/10/2022. FINDINGS: TISSUE DENSITY: There are scattered areas of fibroglandular density. Bilateral Breast Mammographic Findings: No significant masses, calcifications or other abnormalities are identified. A stable 4 mm partially obscured isodense mass in the superior aspect of the right breast is noted. A benign macrocalcification is seen in the right breast. A benign round microcalcification is seen in the left breast. BI/SCRN MAMM (CAD)W/ZANDER BILAT IMPRESSION: Benign screening mammogram. OVERALL FINAL ASSESSMENT BI-RADS 2: BENIGN RECOMMENDATION: Routine annual follow-up in 1 Year Additional Recommendation none A letter with findings and recommendations will be mailed to the patient. Reading Location: [id number]
== END | disposition home or self-care (01) ==
LOC: OPBI 14:31
PROVIDERS: PCP Internal Medicine; Referring Provider Internal Medicine; Visit Provider Internal Medicine
DX: Z12.31 Encounter for screening mammogram for malignant neoplasm of breast (principal)
CPT/HCPCS: 77063; 77067

== ENCOUNTER → 2025-02-01 | Outpatient (CLI) | payer BC, SELFPAY ==
--- NOTE | 2025-02-01 14:29 | NEURO ---
NCS and/or EMG Patient Report Ordering Doctor: Nidhi Harris DATE OF SERVICE: 02/01/25 Alycia presents for electrodiagnostic testing of the left upper limb. She reports numbness and tingling in the left hand. She reports intermittent left-sided neck pain. Electrodiagnostic findings: Left median motor nerve demonstrates normal distal latency with normal amplitude and mildly reduced conduction velocity. Left ulnar motor response is within normal limits. Normal left median and left ulnar F?wave. Prolonged left median sensory latency at the wrist. Normal left ulnar and radial sensory responses. Needle EMG testing was performed in the left upper limb. All muscles tested showed no evidence of denervation with normal motor unit action potentials. No denervation noted in the left cervical paraspinals. Electrodiagnostic assessment: This is an abnormal study. 1. Electrodiagnostic findings suggestive of left-sided median mononeuropathy. This consistent with a mild left carpal tunnel syndrome. 2. No electrodiagnostic evidence is noted for cervical radiculopathy. Multi Select Codes Neurology Neurology Interp Codes: 09880-30 Musc test done w/n test comp (interp) and 50616-43 Nrv cndj test 7-8 studies (interp)
== END | disposition home or self-care (01) ==
LOC: PSN 13:25
PROVIDERS: PCP Internal Medicine; Referring Provider Internal Medicine; Visit Provider Internal Medicine
DX: G37.9 Demyelinating disease of central nervous system, unspecified (principal); R20.0 Anesthesia of skin; R20.2 Paresthesia of skin
CPT/HCPCS: 95886; 95910